=== PATIENT | female | born 1950 | race Caucasian/White ===

== ENCOUNTER 2019-03-25 13:22 | Inpatient (IN) | payer MEDICARE, SELFPAY ==
[2019-03-25 13:42] VITALS: BP 159/67; PULSE 107; RESP 16; TEMP 36.7; O2SAT 96
[2019-03-25 13:57] VITALS: BMI 32.9
--- NOTE | 2019-03-25 14:05 | US_ITS ---
WS: [id number] RIGHT UPPER QUADRANT ULTRASOUND HISTORY: HEP A DEHYDRATION COMPARISON: None available. Liver: 14.4 cm in length. Liver is normal size. Mild coarsened echotexture. There is moderate intrahe patic duct dilatation. No mass identified. Gallbladder: Normally distended gallbladder. No hydrops at this time. There is mobile sludge in the g allbladder lumen along the dependent surface. No cholelithiasis. CBD: 1.3 mm Pancreas: Head and tail are obscured by bowel gas. The body is normal. Right kidney: 10.9 cm in length. Normal echogenicity with no mass or hydronephrosis. Aorta and IVC: Unremarkable. No ascites. US/US liver [id number] IMPRESSION: 1. Dilated intra and extrahepatic bile ducts. Etiology is not certain. 2. Gallbladder sludge with no cholelithiasis. 3. Recommend follow-up CT abdomen and pelvis with IV and oral contrast. MRCP w ould be of benefit to evaluate the common bile duct.
[2019-03-25 14:54] VITALS: BP 172/76; PULSE 99; RESP 21; TEMP 37.7; O2SAT 96
[2019-03-25 15:45] LABS: Basophils % 0.2 %; Eosinophils % 0.1 %; Hematocrit 36.5 % (37.0-47.0); Hemoglobin 12.4 g/dL (11.5-15.3); Lymphocytes % 7.5 %; Mean Corpuscular Hemoglobin 28.8 pg (28.0-34.0); Mean Corpuscular Volume 84.9 fL (81-99); Mean Platelet Volume 10.8 fL (7.4-10.4); Monocytes # 1.1 10^3/uL (0.2-0.9); Monocytes % 8.3 %; Neutrophils # 10.7 10^3/uL (1.8-7.7); Neutrophils % 82.9 %; Nucleated Red Blood Cells % 0 %; Platelet Count 258 10^3/cmm (130-400); Red Cell Distribution Width 13.2 % (12.1-15.1); White Blood Count 12.9 10^3/uL (4.0-10.0)
[2019-03-25] MEDS: sodium chlor 0.9% + KCl 20 mEq 20 MEQ/1,000 ML BAG 175 MEQ IV ×2 (15:46→21:11)
[2019-03-25 16:01] LABS: Alanine Aminotransferase 248 U/L (0-33); Albumin Level 3.4 g/dL (3.5-5.2); Alkaline Phosphatase 785 IU/L (35-105); Anion Gap 20.8 (5-19); Aspartate Amino Transferase 226 U/L (0-32); Blood Urea Nitrogen 8 mg/dL (8-23); Calcium 9.2 mg/dL (8.5-10.5); Carbon Dioxide 21 mmol/L (22-29); Chloride 91 mmol/L (98-107); Globulin 3.6 g/dL (1.3-4.6); Glomerular Filtration Rate 122.7 mL/min (90-130); Glucose 307 mg/dL (65-115); Sodium 130 mmol/L (136-145)
[2019-03-25 16:08] LABS: Potassium 2.8 mmol/L (3.5-5.1); Total Bilirubin 7.7 mg/dL (0.15-1.2)
[2019-03-25 16:19] LABS: Glucose Point of Care 274 mg/dL (70-110)
[2019-03-25] MEDS: potassium chloride premix 40 MEQ/100 ML PREMIX 25 MEQ IV (19:21)
[2019-03-25 20:00] VITALS: BP 157/63; PULSE 77; RESP 21; TEMP 36.8; O2SAT 97
[2019-03-26] VITALS (9 sets, daily range): BP systolic 153–174; BP diastolic 67–87; PULSE 75–97; RESP 12–28; TEMP 36.6–36.8; O2SAT 95–98; BMI 34.0
[2019-03-26 03:30] LABS: Basophils % 0.3 %; Eosinophils % 0.4 %; Hematocrit 33.6 % (37.0-47.0); Hemoglobin 11.2 g/dL (11.5-15.3); Lymphocytes # 2.1 10^3/uL (0.8-4.8); Lymphocytes % 21.5 %; Mean Corpuscular HGB Conc 33.3 g/dL (30.0-36.0); Mean Corpuscular Hemoglobin 28.5 pg (28.0-34.0); Mean Corpuscular Volume 85.5 fL (81-99); Monocytes # 0.8 10^3/uL (0.2-0.9); Monocytes % 7.8 %; Neutrophils # 6.9 10^3/uL (1.8-7.7); Neutrophils % 69.4 %; Nucleated Red Blood Cells % 0 %; Platelet Count 237 10^3/cmm (130-400); Red Blood Count 3.93 10^6/uL (4.1-5.3); Red Cell Distribution Width 13.4 % (12.1-15.1); White Blood Count 9.9 10^3/uL (4.0-10.0)
[2019-03-26 04:01] LABS: Alanine Aminotransferase 220 U/L (0-33); Albumin Level 2.6 g/dL (3.5-5.2); Alkaline Phosphatase 652 IU/L (35-105); Anion Gap 16.3 (5-19); Aspartate Amino Transferase 213 U/L (0-32); Blood Urea Nitrogen 7 mg/dL (8-23); Calcium 8.9 mg/dL (8.5-10.5); Carbon Dioxide 20 mmol/L (22-29); Chloride 100 mmol/L (98-107); Globulin 3.2 g/dL (1.3-4.6); Glomerular Filtration Rate 221.2 mL/min (90-130); Glucose 281 mg/dL (65-115); Potassium 3.3 mmol/L (3.5-5.1); Sodium 133 mmol/L (136-145); Total Bilirubin 6.2 mg/dL (0.15-1.2); Total Protein 5.8 g/dL (6.6-8.7)
--- NOTE | 2019-03-26 08:27 | P.HP_ITS ---
Providers/Chief Complaint Admitting Physician: Huey Whitehead MD Primary Care Provider: Huey Whitehead MD Chief Complaint: HEP A W DEHYDRATION History of Present Illness Preeti Saunders is a 68 year old female who presented to the clinic yesterday for follow-up on laboratory testing that she had. Approximately 2 weeks ago she started feeling really bad. Getting nauseated and having vomiting since. She had some abdominal pain. Little bit of chest pain also. Fevers initially. Condition is just continue to get worse. She came into the office a few days ago and blood work revealed elevated LFTs. With these were repeated and showed her to be positive for hepatitis A. She is brought back into the clinic yesterday to review those labs and see how she was doing. Condition was worsening. She is becoming more dehydrated. At that point the decision was made to directly admit her to the hospital for IV fluids. This morning patient is feeling better. Her total bilirubin has decreased some. She has no chest pain or fevers this morning. Still little nauseous. Feels better with the IV fluids. Past medical history Hyperlipidemia, depression, irregular heartbeat, osteoporosis, diabetes mellitus type 2, latent TB. Past surgical history total abdominal hysterectomy and BSO in her 30s for cysts. 2 vaginal deliveries. Family history Sister had lymphoma age 67 mom had uterine cancer in her 40s Social history She goes by [employer]. Retired from [employer]. Quit smoking at age 45 and has a [id number] smoking history. No alcohol use. Review of Systems Narrative: General: No chronic fevers or chronic weight changes. HEENT: No acute changes in vision. No acute hearing loss. No new difficulty swallowing. Heart: No new chest pain or recent issues with coronary disease. Lungs: Currently being treated for latent TB. No chronic lung disease. GI: No history of GI bleeding. . Renal: No dysuria or frequency. No hematuria Neuro: No acute neurological changes or deficits. Musculoskeletal: No acutely worsening joint pain or swelling. Medications/Allergies Home Medications Medication Instructions Recorded Confirmed Last Taken Type fluoxetine 1 mg PO DAILY 03/25/19 03/25/19 Unknown History glimepiride 2 mg PO DAILY 03/25/19 03/25/19 Unknown History isoniazid 300 mg PO DAILY 03/25/19 03/25/19 Unknown History pyridoxine (vitamin B6) [Vitamin 50 mg PO DAILY 03/25/19 03/25/19 Unknown History B-6] Allergies Allergy/AdvReac Type Severity Reaction Status Date / Time No Known Allergies Allergy Verified 03/25/19 14:57 PFSH Acute PFSH: Statuses (acute, chronic, etc) shown below reflect problem list status as previously entered and may not be historically accurate Medical History (Updated 03/26/19 @ 15:20 by Huey Whitehead MD) Diabetes mellitus, type II (Acute) Hepatitis A (Acute) Obstructive sleep apnea on CPAP (Acute) Vitals/I&O/Wt Last Vital Signs Temp 98.0 F 03/26/19 07:19 Pulse 88 03/26/19 07:19 Resp 21 H 03/26/19 07:19 BP 171/85 03/26/19 07:19 Pulse Ox 98 03/26/19 07:19 03/25/19 03/26/19 03/26/19 22:59 06:59 14:59 Intake Total 947.917 / 2167.917 1220 / 2167.917 Output Total 2600 / 2600 Balance -1652.083 / -865.950 1179 / -432.083 Weight last 48 hrs Weight 197 lb 14.4 oz Weight 197 lb 14.4 oz Weight 191 lb 14.4 oz Physical Exam Narrative: EXAM NARRATIVE: General: No acute distress, Alert. Well nourished. Patient does have some significant jaundice noted. HEENT: PERRLA, EOMI. vision grossly normal. Throat clear. Neck: supple, no adenopathy. Heart: Regular rate and rhythm. No murmurs, rubs or gallops. Normal capillary refill. Lungs: Clear to auscultation. No wheezes, rhonchi or rales. Abdomen: Positive bowel sounds. Non-tender, non-distended. No hepatosplenomegaly. No gaurding. Extremities: No clubbing, cyanosis, or edema. Negative Manjit's. Data : 03/26/19 03:02 03/26/19 03:02 A&P Assessment and plan (1) Hepatitis A: Patient has significantly elevated LFTs and total bilirubin. These have actually improved some today from yesterday. She is also having some significant dehydration. She is responding well to IV fluids. I think she would benefit from another 24 hours of IV fluids and antiemetics. Hopeful for possible discharge tomorrow. Status: Acute Code(s): B15.9 - Hepatitis A without hepatic coma Attestations Medical Necessity Statement*: Patient is a 68-year-old female with acute hepatitis A requiring continued IV treatment and monitoring. 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
[2019-03-26] MEDS: glimepiride 2 mg Tablet PO (09:57)
[2019-03-26] MEDS: fluoxetine 20 mg Capsule 40 MG PO (09:57)
[2019-03-26] MEDS: pyridoxine 50 mg Tablet PO (10:18)
[2019-03-26] MEDS: acetaminophen 500 mg Tablet PO ×2 (12:43→19:40)
--- NOTE | 2019-03-26 13:24 | PC.NURSE ---
patient states her upper back pain has substantually subsided now 2/10 on 0/10 scale.
--- NOTE | 2019-03-26 13:24 | PC.CHAP ---
Pastoral Care Encounter/Spiritual Assessment Type of Contact [] Declined oxygen plant operator visit [] Patient/Family/Request visit [] Outpatient visit [] Follow-up visit [] Physician referral [] Code/Alert [x] Routine visit [] Staff referral [] Actively dying [] Patient sleeping [] Family support [] [] Out of room [] Palliative care [] [] Receiving care in room [] Pre-surgical visit [] Trauma [] Long length of stay [] ICU visit [] Other: Relational/Emotional Strength [x] Patient feels connected with others/family/visitors/staff [] Distress [] Loneliness/isolation [] Abandonment Spirituality of Patient [x] Person of [place] [x] Attends Episcopalian of their [place] [x] Believes in Prayer [] Reads Bible or Church materials [] There are Spiritual issues to be addressed Theatrical Performer Interventions [x] Prayer [x] Active listening [x] Non-anxious presence [x] Spiritual/emotional support [] Crisis/trauma care [] Spiritual counseling [] Bereavement support [] Provided bereavement packet [] Provided Bible/devotional materials [] Provided toy/stuffed animal, coloring book to patient or family member [] Provided Communion [] Anointing/Lohn [] Salvation [x] Completed spiritual assessment [] Other: Impact on Illness or Injury [] Angry [] Fearful [] Anxious [] Often cries [] Exhaustion [] Unable to work [] Unable to attend temple [] Unable to walk/stand [] Unable to read [] Unable to drive [] Unable to eat/drink [] Unable to sleep [] Unable to be with family [] Patient intubated [] Other: Summary Pt just wants to get well and go home to spouse and family. Pt has been sick for 3 weeks and is tired of being sick, per her statement. Theatrical Performer Citlalli Vanegas Time spent with patient 17 minutes
[2019-03-26] MEDS: enoxaparin 40 mg/0.4 mL Syringe SUBCUT (15:29)
[2019-03-26] MEDS: sodium chloride 0.9% 1,000 ML 125 ML IV (15:30)
[2019-03-27] VITALS (9 sets, daily range): BP systolic 140–172; BP diastolic 75–90; PULSE 85–93; RESP 15–25; TEMP 36.6–36.8; O2SAT 93–96; BMI 33.7
[2019-03-27] MEDS: ondansetron 2 mg/ML SDV 2 mL 4 MG IVP ×2 (01:12→10:25)
[2019-03-27] MEDS: sodium chloride 0.9% 1,000 ML 125 ML IV ×2 (02:27→10:32)
[2019-03-27 05:18] LABS: Basophils % 0.3 %; Eosinophils % 0.2 %; Hematocrit 34.4 % (37.0-47.0); Hemoglobin 11.5 g/dL (11.5-15.3); Lymphocytes # 1.8 10^3/uL (0.8-4.8); Lymphocytes % 14.5 %; Mean Corpuscular HGB Conc 33.4 g/dL (30.0-36.0); Mean Corpuscular Hemoglobin 29.3 pg (28.0-34.0); Mean Corpuscular Volume 87.5 fL (81-99); Mean Platelet Volume 11.4 fL (7.4-10.4); Monocytes # 0.9 10^3/uL (0.2-0.9); Neutrophils # 9.6 10^3/uL (1.8-7.7); Neutrophils % 77.1 %; Nucleated Red Blood Cells % 0 %; Platelet Count 267 10^3/cmm (130-400); Red Blood Count 3.93 10^6/uL (4.1-5.3); Red Cell Distribution Width 13.6 % (12.1-15.1); White Blood Count 12.4 10^3/uL (4.0-10.0)
[2019-03-27 05:34] LABS: Alanine Aminotransferase 243 U/L (0-33); Albumin Level 2.9 g/dL (3.5-5.2); Alkaline Phosphatase 789 IU/L (35-105); Anion Gap 18.2 (5-19); Aspartate Amino Transferase 271 U/L (0-32); Blood Urea Nitrogen 8 mg/dL (8-23); Calcium 9.2 mg/dL (8.5-10.5); Carbon Dioxide 21 mmol/L (22-29); Chloride 96 mmol/L (98-107); Globulin 3.5 g/dL (1.3-4.6); Glomerular Filtration Rate 221.2 mL/min (90-130); Glucose 280 mg/dL (65-115); Potassium 3.2 mmol/L (3.5-5.1); Sodium 132 mmol/L (136-145); Total Protein 6.4 g/dL (6.6-8.7)
[2019-03-27 05:45] LABS: Total Bilirubin 7.4 mg/dL (0.15-1.2)
[2019-03-27] MEDS: fluoxetine 20 mg Capsule 40 MG PO (10:06)
[2019-03-27] MEDS: glimepiride 2 mg Tablet PO (10:07)
[2019-03-27] MEDS: pyridoxine 50 mg Tablet PO (10:07)
--- NOTE | 2019-03-27 10:08 | MRR_ITS ---
PROCEDURE INFORMATION: Exam: MR Abdomen Without Contrast Exam date and time: 03/27/2019 2:59 PM Age: 68 years old Clinical indication: Abdominal pain; Generalized; Patient HX: PT experiencing total abdomen pain accompanied by n/v for 4 weeks; Additional info: R/O vivian, lft derranged TECHNIQUE: Imaging protocol: MR of the abdomen without contrast. COMPARISON: US liver [id number] 03/25/2019 2:04 PM FINDINGS: Liver: Mild hepatic steatosis is appreciated. No parenchymal lesion is seen. Gallbladder and bile ducts: Sludge and a small gallstone are present in the gallbladder. No gallbladder wall thickening; however, trace pericholecystic fluid is seen. Mild biliary ductal dilatation is again seen. The common bile duct measures up to 12 mm. A small 9 mm stone is present in the distal common bile duct. A small 6 mm stone is also seen in the terminal common bile duct near the ampulla. Pancreas: Mild peripancreatic fat stranding is seen in the head and uncinate region. No pancreatic ductal dilatation. Spleen: Unremarkable. No splenomegaly. Adrenals: Unremarkable. No mass. Kidneys and ureters: Small parapelvic cysts are seen in both kidneys. Trace bilateral perinephric fluid is appreciated which is likely related to chronic changes. Stomach and bowel: Unremarkable. Intraperitoneal space: No fluid collection. Arteries: No abdominal aortic aneurysm. Bones/joints: Unremarkable. Soft tissues: Unremarkable. MR/MR MRCP [id number] IMPRESSION: 1. Cholelithiasis and choledocholithiasis. Trace pericholecystic fluid may be secondary to cholecystitis or may be related to pancreatitis. Nuclear medicine hepatobiliary scan may allow further delineation. 2. Mild acute pancreatitis. 3. Mild hepatic steatosis.
[2019-03-27] MEDS: morphine 4 mg/mL SDV 1 mL 1 MG IVP ×2 (10:29→21:01)
[2019-03-27 11:15] LABS: HIV 1 & 2 Antibody Non-Reactive (Non-Reactiv); HIV 1 & 2 Antigen Non-Reactive (Non-Reactiv)
[2019-03-27] MEDS: sodium chloride 0.9% 1,000 ML 150 ML IV (12:22)
[2019-03-27] MEDS: morphine 4 mg/mL SDV 1 mL 2 MG IVP (13:33)
--- NOTE | 2019-03-27 15:31 | P.PN_ITS ---
Subjective Subjective: Interval history: History and physical and lab still now noted. Seen today morning while comfortably lying in bed. Patient complains of abdominal pain, nausea but no vomiting and back pain. She denies of having any fevers, chills, change in her bowel movements, dysuria. Vitals/I&O/Wt Last Vital Signs Temp 98.2 F 03/27/19 07:43 Pulse 89 03/27/19 11:28 Resp 18 03/27/19 11:28 BP 169/76 03/27/19 11:28 Pulse Ox 94 03/27/19 11:28 03/27/19 03/27/19 03/27/19 06:59 14:59 22:59 Intake Total 1150 / 1510 1310 / 1310 Output Total 150 / 150 Balance 1150 / 510 1160 / 1160 Weight last 48 hrs Weight 89.358 kg Weight 89.358 kg Weight 89.766 kg Weight 89.766 kg Physical Exam Narrative: EXAM NARRATIVE: General: No acute distress, Alert. Well nourished. Icterus present. HEENT: PERRLA, EOMI. vision grossly normal. Throat clear. Neck: supple, no adenopathy. Heart: Regular rate and rhythm. No murmurs, rubs or gallops. Normal capillary refill. Lungs: Clear to auscultation. No wheezes, rhonchi or rales. Abdomen: Positive bowel sounds. Non-tender, non-distended. No hepatosplenomegaly. No gaurding. Extremities: No clubbing, cyanosis, or edema. Negative Manjit's. Data : 03/27/19 04:45 03/27/19 04:45 A&P Assessment and plan (1) Hepatitis A: LFTs continue to be deranged. Little worsened as compared to yesterday. With marked elevation in alkaline phosphatase as well. Continue with IV fluids. Will increase normal saline from 125 to 150 cc/h. Given the right upper quadrant tenderness and elevated alkaline phosphatase will get MRCP to rule out cholecystitis. Check HIV. On review of medications patient was also on isoniazid which could be contributing to deranged LFTs. We will change the diet to GI soft bland. Will advance further as tolerated. Will give morphine 1 mg IV Q6h PRN Status: Acute Code(s): B15.9 - Hepatitis A without hepatic coma (2) Abnormal liver function: Status: Acute Code(s): R94.5 - Abnormal results of liver function studies (3) Diabetes mellitus, type II: Status: Acute Code(s): E11.9 - Type 2 diabetes mellitus without complications (4) Latent tuberculosis: Status: Acute Code(s): Z22.7 - Latent tuberculosis Additional A&P Information Abnormal liver function tests: Most likely due to hepatitis A along with patient being on isoniazid and statins in past. Latent TB: Continue to hold isoniazid and view of abnormal liver functions right now. Type 2 diabetes mellitus: Given the deranged liver function test cannot move the clearance of glimepiride so will withhold for now. We will change her over to insulin sliding scale at mild protocol. Continue on chronic home dose of Prozac. 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
[2019-03-27 16:32] LABS: Glucose Point of Care 315 mg/dL (70-110)
[2019-03-27] MEDS: enoxaparin 40 mg/0.4 mL Syringe SUBCUT (16:35)
--- NOTE | 2019-03-27 18:21 | P.TS_ITS ---
Transfer Summary Providers Date of Admission: 03/25/19 13:22 Date of Discharge: 03/27/19 Attending Provider at Admission: Huey Whitehead MD Attending Provider at Transfer: Alex Harris MD Primary Care Provider: Huey Whitehead MD Anticipated Date of Transfer: Anticipated date of transfer: 03/27/19 Receiving Facility & Provider: Receiving Provider: [Dr. Ohara and Dr. Sam] Receiving facility: [facility]] Diagnoses at Discharge Discharge Diagnosis (1) Hepatitis A: Status: Acute (2) Abnormal liver function: Status: Acute (3) Diabetes mellitus, type II: Status: Acute (4) Latent tuberculosis: Status: Acute (5) Cholangitis: Status: Acute (6) Pancreatitis: Status: Acute Reason for Visit Reason for Visit: Reason For Visit: HEP A W DEHYDRATION Hospital Course Discharge Summary: Patient was admitted on March 26 because of worsening liver function tests along with positive hepatitis C serology as an outpatient for IV hydration. During hospitalization patient's liver function test continue to worsen along with right upper quadrant pain and nausea on examination patient was found to have Toure sign positive. Patient underwent MRCP which was suggestive of choledocholithiasis and choledocholithiasis with positive signs for cholecystitis and pancreatitis most consistent with cholangitis. Case was discussed with Dr. Jaramillo who suggestive patient needing ERCP for further management. Patient was started on Zosyn for perioperative management. 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 For further details please read my progress note from today. Physical Exam Narrative: EXAM NARRATIVE: General: No acute distress, Alert. Well nourished. Icterus present. HEENT: PERRLA, EOMI. vision grossly normal. Throat clear. Neck: supple, no adenopathy. Heart: Regular rate and rhythm. No murmurs, rubs or gallops. Normal capillary refill. Lungs: Clear to auscultation. No wheezes, rhonchi or rales. Abdomen: Generalized tenderness all over the belly more in the right upper quadrant, Toure sign positive, bowel sounds present, no hepatosplenomegaly. Extremities: No clubbing, cyanosis, or edema. Negative Manjit's. TS Data Data Completed and Pending: Completed Studies During Hospitalization Category Date Time Status MR MRCP [id number] Sta t MRI 03/27/19 10:08 Completed US liver [id number] Ro utine Ultrasound 03/25/19 14:05 Completed Pending at discharge Category Date Time Status Complete Blood Co unt w/Auto AM LABS Lab 03/28/19 04:00 Ordered Complete Blood Co unt w/Auto AM LABS Lab 03/29/19 04:00 Ordered Complete Blood Co unt w/Auto AM LABS Lab 03/30/19 04:00 Ordered Comprehensive Met abolic Panel AM LA BS Lab 03/28/19 04:00 Ordered Comprehensive Met abolic Panel AM LA BS Lab 03/29/19 04:00 Ordered Comprehensive Met abolic Panel AM LA BS Lab 03/30/19 04:00 Ordered Hepatitis Acute P tamra Routine Lab 03/27/19 17:34 Ordered Lipase Routine Lab 03/27/19 17:34 Ordered Labs from last 24 hours 03/27/19 03/27/19 03/27/19 16:30 04:45 04:45 WBC RBC Hgb Hct MCV MCH MCHC RDW Plt Count MPV Neut % (Auto) Lymph % (Auto) Tyler % (Auto) Eos % (Auto) Baso % (Auto) Neut # (Auto) Lymph # (Auto) Tyler # (Auto) Eos # (Auto) Baso # (Auto) Nucleated RBC % (a uto) Nucleated RBCs # Sodium 132 L Potassium 3.2 L Chloride 96 L Carbon Dioxide 21 L Anion Gap 18.2 BUN 8 Creatinine 0.3 L GFR Calculation 221.2 H Glucose 280 H POC Glucose 315 Calcium 9.2 Total Bilirubin 7.4 H* AST 271 H ALT 243 H Alkaline Phosphata se 789 H Total Protein 6.4 L Albumin 2.9 L Globulin 3.5 HIV 1&2 Ab & HIV 1 Ag Non-reactive HIV 1&2 Antibody Non-reactive 03/27/19 04:45 WBC 12.4 H RBC 3.93 L Hgb 11.5 Hct 34.4 L MCV 87.5 MCH 29.3 MCHC 33.4 RDW 13.6 Plt Count 267 MPV 11.4 H Neut % (Auto) 77.1 Lymph % (Auto) 14.5 Tyler % (Auto) 7.0 Eos % (Auto) 0.2 Baso % (Auto) 0.3 Neut # (Auto) 9.6 H Lymph # (Auto) 1.8 Tyler # (Auto) 0.9 Eos # (Auto) 0.0 Baso # (Auto) 0.0 Nucleated RBC % (a uto) 0 Nucleated RBCs # 0.0 Sodium Potassium Chloride Carbon Dioxide Anion Gap BUN Creatinine GFR Calculation Glucose POC Glucose Calcium Total Bilirubin AST ALT Alkaline Phosphata se Total Protein Albumin Globulin HIV 1&2 Ab & HIV 1 Ag HIV 1&2 Antibody Vitals: Last Vital Signs Temp 98.2 F 03/27/19 15:35 Pulse 90 03/27/19 15:35 Resp 17 03/27/19 15:35 BP 150/88 03/27/19 15:35 Pulse Ox 94 03/27/19 15:35 TS Medications Medications Home Medications fluoxetine 1 mg PO DAILY 03/25/19 [History Confirmed 03/25/19] glimepiride 2 mg PO DAILY 03/25/19 [History Confirmed 03/25/19] isoniazid 300 mg PO DAILY 03/25/19 [History Confirmed 03/25/19] pyridoxine (vitamin B6) [Vitamin B-6] 50 mg PO DAILY 03/25/19 [History Confirmed 03/25/19] Active Medications Acetaminophen (Tylenol) 500 mg PO Q6H PRN PRN Reason: MILD PAIN OR INCREASE TEMP Last Admin: 03/26/19 19:40 Dose: 500 mg Documented by: Bisacodyl (Dulcolax) 10 mg PO DAILY PRN PRN Reason: CONSTIPATION Dextrose (D50w) 25 ml IVP ONCE PRN; Protocol PRN Reason: hypoglycemia protocol Dextrose (D50w) 50 ml IVP PRN PRN; Protocol PRN Reason: hypoglycemia protocol Enoxaparin Sodium (Lovenox) 40 mg SUBCUT Q24H [facility] Last Admin: 03/27/19 16:35 Dose: 40 mg Documented by: Fluoxetine HCl (Prozac) 40 mg PO DAILY [facility] Last Admin: 03/27/19 10:06 Dose: 40 mg Documented by: Glucagon (Glucagen) 1 mg IM ONCE PRN; Protocol PRN Reason: Adult Acute Hypoglycemia Prot. Sodium Chloride (Sodium Chloride 0.9%) 1,000 mls @ 150 mls/hr IV .Q6H40M [facility] Last Admin: 03/27/19 12:22 Dose: 150 mls/hr Documented by: Dextrose (D5w) 500 mls @ 100 mls/hr IV ONCE PRN; Protocol PRN Reason: Adult Acute Hypoglycemia Prot Piperacillin Sod/Tazobactam (Sod 3.375 gm/ Sodium Chloride) 50 mls @ 12.5 mls/hr IV Q8H DANAE; Protocol Insulin Aspart (Novolog) 0 unit SUBCUT WM&BEDTIME DANAE; Protocol Magnesium Hydroxide (Milk Of Magnesia) 30 ml PO DAILY PRN PRN Reason: CONSTIPATION Morphine Sulfate (Morphine) 1 mg IVP Q4H PRN PRN Reason: SEVERE PAIN Last Admin: 03/27/19 10:29 Dose: 1 mg Documented by: Ondansetron HCl (Zofran) 4 mg IVP Q4H PRN PRN Reason: NAUSEA AND VOMITING Last Admin: 03/27/19 10:25 Dose: 4 mg Documented by: Pyridoxine HCl (Vitamin B-6) 50 mg PO DAILY DANAE Last Admin: 03/27/19 10:07 Dose: 50 mg Documented by: Zolpidem Tartrate (Ambien) 5 mg PO BEDTIME PRN PRN Reason: SLEEP Discharge Plan Discharge Patient Disposition: Home, Self-Care Condition: Stable Prescriptions: No Action glimepiride 2 mg tablet 2 mg PO DAILY RF: 0 Vitamin B-6 50 mg tablet 50 mg PO DAILY RF: 0 isoniazid 300 mg tablet 300 mg PO DAILY RF: 0 fluoxetine 40 mg capsule 1 mg PO DAILY RF: 0 Discharge Diet: Full LIquid Discharge Activity: Bedrest Transfer Attestations Time Spent in Transfer Care*: greater than 30 min Specific Discharge Activities: Specific discharge activities: educating patient, educating and/or supporting family/caregiver, discussing with rehabilitation case coordinator/social workers/dc planners and evaluating patient/reviewing data Status at Transfer: Cognitive status at transfer: cognitively intact , Behavioral status at transfer: cooperative , Functional status at transfer: other assisted ambulation Overall status at transfer: patient is not back to baseline Quality Metrics Clinical Quality Measures: During this hospital stay, did patient experience: None Coding Level of Care Code 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
[2019-03-27 18:34] LABS: Hepatitis A Antibody IgM. Non-Reactive (Nonreactive); Hepatitis B Core IgM Non-Reactive (Nonreactive); Hepatitis B Surface Antigen. Non-Reactive (Nonreactive); Hepatitis C Virus Antibody Non-Reactive (Nonreactive)
[2019-03-27 18:48] LABS: Lipase 747 U/L (13-60)
[2019-03-27] MEDS: piperacillin-tazobactam 3.375 GM in sodium chloride 0.9% (plus) 50 ML IV (19:09)
--- NOTE | 2019-03-27 21:10 | PC.NURSE ---
[facility] arrived at
--- NOTE | 2019-03-27 21:10 | PC.NURSE ---
[facility] arrived at 2109 to merchandise pickup/receiving associate patient for transfer to [facility]. Report Given, and patient had all her belongings with her. Clifton Alas RN called report to [facility].
== END 2019-03-27 21:15 | disposition short-term general hospital (02) | DRG 441 ==
PROVIDERS: Admitting Provider Family Medicine; Family Provider Family Medicine; PCP Family Medicine; Visit Provider Student in an Organized Health Care Education/Training Program
DX: B15.9 Hepatitis A without hepatic coma (principal); K85.90 Acute pancreatitis without necrosis or infection, unspecified; K80.10 Calculus of gallbladder with chronic cholecystitis without obstruction; K83.09 Other cholangitis; E78.5 Hyperlipidemia, unspecified; F32.9 Major depressive disorder, single episode, unspecified; M81.0 Age-related osteoporosis without current pathological fracture; E11.9 Type 2 diabetes mellitus without complications; Z22.7 Latent tuberculosis; Z90.710 Acquired absence of both cervix and uterus; Z87.891 Personal history of nicotine dependence; G47.33 Obstructive sleep apnea (adult) (pediatric); E86.0 Dehydration; Z79.84 Long term (current) use of oral hypoglycemic drugs; R94.5 Abnormal results of liver function studies; K76.0 Fatty (change of) liver, not elsewhere classified
CPT/HCPCS: 12345; 36415; 36416; 74181; 76705; 80053; 80074; 82962; 83690; 85025; 86140; 87806; 96372; 96375; J1650; J1815; J2270; J2405; J2543; J3480; J7030

== ENCOUNTER 2019-10-11 08:47 | Outpatient (CLI) | payer MEDICARE, SELFPAY ==
--- NOTE | 2019-10-11 08:59 | US_ITS ---
WS: [id number] ULTRASOUND ABDOMEN LIMITED CLINICAL INFORMATION: HEPATITIS/ELEVATED LFT'S COMPARISON: None. FINDINGS: Liver Size: Mild hepatomegaly Craniocaudal length: 19.0 cm. Echogenicity: Coarse fatty infiltration Surface nodularity: None. Mass (size and location): None. Bile ducts Intrahepatic ducts: Normal. Common bile duct diameter: 0.7 cm. Gallbladder Removed Pancreas Normal as visualized. Right kidney: Normal. Hydronephrosis: None. Size: 10.5 cm x 5.6 cm x 6.0 cm. Abdominal aorta and IVC Visualized portions are normal. Ascites: None. US/US gall bladder [id number] IMPRESSION: 1. Mild hepatomegaly with fatty infiltration. 2. Gallbladder has been removed. 3. Normal common bile duct. 4. No hydronephrosis in right kidney.
== END 2019-10-11 08:48 | disposition home or self-care (01) ==
LOC: RAD 08:50
PROVIDERS: PCP Family Medicine; Visit Provider Family Medicine
DX: K75.9 Inflammatory liver disease, unspecified (principal); R94.5 Abnormal results of liver function studies; R16.0 Hepatomegaly, not elsewhere classified; K76.0 Fatty (change of) liver, not elsewhere classified
CPT/HCPCS: 76705

== ENCOUNTER 2019-11-06 08:53 | Emergency (ER) | payer MEDICARE, SELFPAY ==
[2019-11-06 09:05] VITALS: BMI 31.7
[2019-11-06 09:12] VITALS: BP 133/66; PULSE 86; RESP 20; TEMP 36.8; O2SAT 94
--- NOTE | 2019-11-06 09:25 | CTR_ITS ---
PROCEDURE INFORMATION: Exam: CT Maxillofacial Without Contrast Exam date and time: 11/06/2019 9:52 AM Age: 69 years old Clinical indication: Injury or trauma; Fall; Initial encounter; Blunt trauma (contusions or hematomas); Forehead and orbit/periorbital; Right; Additional info: Syncope, fall TECHNIQUE: Imaging protocol: Computed tomography images of the face without contrast. Radiation optimization: All CT scans at this facility use at least one of these dose optimization techniques: automated exposure control; mA and/or kV adjustment per patient size (includes targeted exams where dose is matched to clinical indication); or iterative reconstruction. COMPARISON: No relevant prior studies available. Greeting Card Maker CT head and cervical spine. RADIATION DOSE METRICS: Total DLP (mGy-cm): 763.26 FINDINGS: Orbits: Orbits are normal. No retrobulbar hematoma. Globes are round and symmetrical. Bones/joints: Acute minimally displaced fractures of the anterior and posterolateral baptiste of the right maxillary sinus. There is a small amount of layering fluid within the right maxillary sinus and scattered air within the soft tissues, right greater than left. There is subtle irregularity concerning for acute nondisplaced fracture of the dorsum sellae (see sagittal images 30 and 31 series 602, also coronal images 15 through 17 series 601) with minimal dependent fluid/debris within the right sphenoid sinus and small amount of air outlining the sella bilaterally. Bones otherwise appear intact. Paranasal sinuses: Fluid within right maxillary sinus and right sphenoid sinus as described. Left paranasal sinuses well aerated. Mastoid air cells: Bilateral mastoid air cells clear. No evidence of temporal bone fracture. Soft tissues: As above. CT/CT facial bones wo con* [id number] IMPRESSION: 1. Acute minimally displaced fractures of the right maxillary sinus anterior and posterolateral baptiste, with small layering fluid/blood within the sinus. 2. Suspected acute nondisplaced fracture of the dorsum sellae, possibly involving the adjacent right sphenoid sinus. 3. Bones appear intact. 4. Scattered air within the soft tissues bilaterally, largest amount surrounding the right maxillary sinus fractures as expected, but some on the left as well. Radiation Dose CTDIVOL = (mGy): DLP = 763.26 (mGy-cm)
--- NOTE | 2019-11-06 09:25 | CTR_ITS ---
PROCEDURE INFORMATION: Exam: CT Head Without Contrast Exam date and time: 11/06/2019 9:52 AM Age: 69 years old Clinical indication: Injury or trauma; Fall; Additional info: Syncope, fall TECHNIQUE: Imaging protocol: Computed tomography of the head without contrast. Radiation optimization: All CT scans at this facility use at least one of these dose optimization techniques: automated exposure control; mA and/or kV adjustment per patient size (includes targeted exams where dose is matched to clinical indication); or iterative reconstruction. COMPARISON: No relevant prior studies available. 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 RADIATION DOSE METRICS: Total DLP (mGy-cm): 804.8 FINDINGS: Brain: No intracranial hemorrhage. Diffuse atrophy. 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 Additional old infarct seen within the bilateral cerebellar hemispheres, right greater than left. Normal carpio-white differentiation with no evidence of edema or acute territorial infarct. There is decreased attenuation of the periventricular white matter which is nonspecific but compatible with chronic microvascular ischemia. No extra-axial fluid collection. Ventricles: No hydrocephalus. Bones/joints: Calvarium intact. Right maxillary sinus fractures better visualized on dedicated maxillofacial CT. Paranasal sinuses: Fluid right maxillary sinus and right sphenoid sinus. See dedicated maxillofacial CT. Soft tissues: Small right periorbital soft tissue swelling/hematoma. CT/CT head wo con* [id number] IMPRESSION: 1. No acute intracranial findings. 2. Atrophy and chronic ischemic changes. 3. Right periorbital soft tissue swelling/hematoma. See report for dedicated maxillofacial CT for description fractures. Radiation Dose CTDIVOL = (mGy): DLP = 804.8 (mGy-cm)
--- NOTE | 2019-11-06 09:25 | CTR_ITS ---
PROCEDURE INFORMATION: Exam: CT Cervical Spine Without Contrast Exam date and time: 11/06/2019 9:52 AM Age: 69 years old Clinical indication: Injury or trauma; Fall; Initial encounter; Blunt trauma; Additional info: Syncope, fall TECHNIQUE: Imaging protocol: Computed tomography images of the cervical spine without contrast. Radiation optimization: All CT scans at this facility use at least one of these dose optimization techniques: automated exposure control; mA and/or kV adjustment per patient size (includes targeted exams where dose is matched to clinical indication); or iterative reconstruction. COMPARISON: No relevant prior studies available. 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 RADIATION DOSE METRICS: Total DLP (mGy-cm): 692.72 FINDINGS: Vertebrae: Vertebral bodies and posterior elements intact and normally aligned. Discs/Spinal canal/Neural foramina: Moderate disc space narrowing at C3/4 with uncovertebral joint hypertrophy and small osteophytes contributing to mild stenosis of the right neural foramen. No high-grade stenosis. Soft tissues: No abnormal swelling/hematoma. Small scattered gas within the soft tissues in the setting of right maxillary sinus fracture. Lungs: No acute findings. CT/CT cervical spin wo con* [id number] IMPRESSION: 1. No evidence of cervical spine fracture or subluxation. 2. C3/4 degenerative changes. No high-grade stenosis. Radiation Dose CTDIVOL = (mGy): DLP = 692.72 (mGy-cm)
--- NOTE | 2019-11-06 09:25 | XRR_ITS ---
PROCEDURE INFORMATION: Exam: XR Chest, 1 View Exam date and time: 11/06/2019 9:28 AM Age: 69 years old Clinical indication: Injury or trauma; Fall; Initial encounter; Blunt trauma (contusions or hematomas); Additional info: Syncope, hypoxia, covid R/O TECHNIQUE: Imaging protocol: XR of the chest Views: 1 view. COMPARISON: CR Chest 2 views* [id number] 10/18/2018 5:53 PM FINDINGS: Lungs: Unremarkable. No consolidation. Pleural space: Unremarkable. No evidence of pleural effusion or pneumothorax. Heart/Mediastinum: Unremarkable. No cardiomegaly. Bones/joints: Unremarkable. XR/XR chest 1V portable [id number] IMPRESSION: No acute findings.
--- NOTE | 2019-11-06 09:25 | ECG_ITS ---
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 Measurements Intervals [place] Rate: 82 P: 60 NV: 148 QRS: -30 QRSD: 101 T: 45 QT: 405 QTc: 474 Interpretive Statements SINUS RHYTHM BORDERLINE LEFT AXIS DEVIATION [QRS AXIS < -20] No previous ECG available for comparison Electronically Signed On 11-06-2019 17:33:39 CDT by Dawson Otto M.D. [email or web address] Technologiesjefferson davis community hospitalBusyEventavita health system bucyrus hospitalSimuForm/store/OM/[id number]
[2019-11-06 09:34] VITALS: RESP 20
[2019-11-06] MEDS: morphine 4 mg/mL SDV 1 mL IVP (09:34)
[2019-11-06] MEDS: ondansetron 2 mg/ML SDV 2 mL 4 MG IV (09:35)
[2019-11-06] MEDS: sodium chloride 0.9% 1,000 ML 150 ML IV (09:35)
[2019-11-06 09:59] LABS: Basophils % 0.2 %; Hematocrit 38.9 % (37.0-47.0); Hemoglobin 12.9 g/dL (11.5-15.3); Lymphocytes # 0.8 10^3/uL (0.8-4.8); Lymphocytes % 11.7 %; Mean Corpuscular HGB Conc 33.2 g/dL (30.0-36.0); Mean Corpuscular Hemoglobin 30.2 pg (28.0-34.0); Mean Corpuscular Volume 91.1 fL (81-99); Mean Platelet Volume 11.3 fL (7.4-10.4); Monocytes # 0.2 10^3/uL (0.2-0.9); Monocytes % 2.8 %; Neutrophils # 5.54 10^3/uL (1.8-7.7); Neutrophils % 85.1 %; Nucleated Red Blood Cells % 0 %; Platelet Count 221 10^3/cmm (130-400); Red Blood Count 4.27 10^6/uL (4.1-5.3); Red Cell Distribution Width 12.5 % (12.1-15.1); White Blood Count 6.5 10^3/uL (4.0-10.0)
[2019-11-06 10:08] LABS: INR 0.92 (0.8-1.2)
[2019-11-06 10:10] LABS: D Dimer 1.44 ug/mIFEU (0-0.59)
[2019-11-06 10:17] LABS: Lactic Sepsis W/Reflex 2.9 mmol/L (0.5-2.2)
[2019-11-06 10:19] LABS: Troponin(5th) Baseline 13 ng/L (0-10)
--- NOTE | 2019-11-06 10:25 | ED_ITS ---
HPI - Fall General: Chief Complaint: Fall Stated Complaint: FALL Time Seen by Provider: 11/06/19 09:05 History of Present Illness: HPI Narrative: This patient is a 69-year-old female who presents today with a syncopal episode. She was doing a 5K walk with her worship when she suddenly passed out. She said she did not have chest pain or palpitations but was feeling very short of breath prior to the event. She has had a severe cough for about 3 weeks. She has been seeing her primary care for it and was tested for COVID about a week ago. That test came back negative. She continues to have a severe cough and is generally not feeling well. Her doctor gave her prednisone, 20 mg daily for 5 days. He also gave her an antibiotic prior to the prednisone which she said did not help at all either. Currently she is also taking another pill that is once daily and is large and red but she is not sure if it is an antibiotic or what it is for. Her medication list also had isoniazid on it which I asked about. Apparently she had some sort of positive TB test about a year ago and was on that for a short time. It made her liver enzymes go up so she was taken off of it. She also has a history of diabetes and is overweight. She is complaining of pain in her head, face and neck and right arm from the fall. MD complaint: fall Onset (ago): minute(s) (30) Fall from: standing Fall witnessed: yes, by bystander Place fall occurred: street Loss of consciousness: Yes Length of LOC: second(s) Prolonged down time: no Symptoms prior to fall: other (Short of breath) Context: recent illness Location of injury: head and face Location of injury - extremities: Right: hand Severity: moderate Quality: dull Associated symptoms-after fall: Reports headache(s), neck pain and short of breath; Denies abdominal pain or chest pain Review of Systems General: Reports: 10 or more systems reviewed and unremarkable except in HPI and below Const: Reports: fatigue and malaise; Denies: fever(s) or chills Eyes: Denies: change in vision ENMT: Denies: odynophagia Card: Reports: syncope and dyspnea on exertion; Denies: chest pain or swelling of feet/ankles Resp: Reports: dyspnea and non-productive cough; Denies: productive cough GI: Reports: nausea; Denies: abdominal pain or vomiting : Denies: flank pain or difficulty voiding Musc: Reports: neck pain; Denies: back pain Skin/Breast: Denies: rash Neuro: Reports: headache(s); Denies: numbness in extremities or weakness in extremities Braulio/Lymph: Denies: easy bruising or easy bleeding PFS ED PFSH: Medical History (Updated 03/27/19 @ 18:25 by Alex Harris MD) Diabetes mellitus, type II Hepatitis A Obstructive sleep apnea on CPAP Physical Exam Const: COMMON NORMALS: no acute distress, patient oriented x3, no limitations and alert GENERAL APPEARANCE: cooperative and comfortable HENMT: HEAD & SCALP: abrasion (Right orbital area and zygoma), contusion and hematoma FACE & SINUS: normal facial exam Eye: GENERAL EYE: appearance normal, both eyes and all related structures Neck/C-Spine: COMMON NORMALS: supple, no meningeal signs and no JVD Chest: COMMONS NORMALS: normal inspection of the chest Resp: COMMON NORMALS: normal respiratory effort EFFORT & INSPECTION: Yes tachypneic AUSCULTATION: rhonchi lower bilaterally Cardio: COMMON NORMALS: no JVD, regular rate, regular rhythm and No murmurs present (Cardio) RATE: regular rate RHYTHM: regular rhythm GI: COMMON NORMALS: Normal to inspection, nondistended, normoactive bowel sounds present, Soft to palpation and non-tender INSPECTION: Yes normal to inspection AUSCULTATION: Yes normoactive bowel sounds PALPATION: Yes Soft to palpation Back/Pelvis: COMMON NORMALS: thoracic and lumbar spine normal to inspection Extremity: COMMON NORMALS: normal to inspection Neuro: COMMON NORMALS: patient oriented x3, moves all extremities, no focal motor deficits and no sensory deficits noted SENSORIUM/ORIENTATION: Yes alert MENINGEAL SIGNS: Yes no meningeal signs Psych: COMMON NORMALS: mental status grossly normal, cooperative and normal affect Skin: COMMON NORMALS: no rashes or lesions noted and turgor normal GENERAL SKIN EXAM: no rashes or lesions noted and turgor normal Course ED course: This patient has syncopal episode today while she was attempting to do a 5K walk with her worship group. She has been sick for 3 weeks with a cough. On arrival she has injuries to the right side of her face and is complaining about pain in her face and head. She is also noted to be hypoxic with a sat of 88% while just sitting on the bed talking with me. She had been tested for COVID a week ago but that test was negative. Given my clinical impression I am highly suspicious of COVID. She was tested and was positive here in the ED. Chest x-ray shows some changes consistent with COVID. I gave her Decadron and remdesivir. I did not give her Lovenox prophylactically given the injuries to her face. CT of the head showed no brain injury but she does have fractures to the right maxillary sinus, right dorsum sella and possibly the right sphenoid sinus. She was accepted to [facility] 2 there viral unit and they will consult regarding her facial injuries if necessary. Vital Signs: Vital signs: Vital Signs Temperature 98.5 F 11/06/19 15:03 Pulse Rate 81 11/06/19 15:03 Respiratory Rate 20 H 11/06/19 15:03 Blood Pressure 130/81 11/06/19 15:03 Pulse Oximetry 92 11/06/19 15:03 MDM - Fall Lab Data: Labs: Lab Results 11/06/19 11/06/19 11/06/19 Range/Units 09:49 09:49 09:49 WBC (4.0-10.0) 10^3/ uL RBC (4.1-5.3) 10^6/u L Hgb (11.5-15.3) g/dL Hct (37.0-47.0) % MCV (81-99) fL MCH (28.0-34.0) pg MCHC (30.0-36.0) g/dL RDW (12.1-15.1) % Plt Count (130-400) 10^3/c mm MPV (7.4-10.4) fL Neut % (Auto) % Lymph % (Auto) % [place] % (Auto) % Eos % (Auto) % Baso % (Auto) % Neut # (Auto) (1.8-7.7) 10^3/u L Lymph # (Auto) (0.8-4.8) 10^3/u L [place] # (Auto) (0.2-0.9) 10^3/u L Eos # (Auto) (0.0-0.8) 10^3/u L Baso # (Auto) (0.0-0.1) 10^3/u L Nucleated RBC % (a uto) % Nucleated RBCs # /100WBC PT 12.70 (12.1-14.9) SECO NDS INR 0.92 (0.8-1.2) D-Dimer 1.44 H (0-0.59) ug/mIFE U Sodium 134 L (136-145) mmol/L Potassium 3.8 (3.5-5.1) mmol/L Chloride 99 (98-107) mmol/L Carbon Dioxide 20 L (22-29) mmol/L Anion Gap 18.8 (5-19) BUN 13 (8-23) mg/dL Creatinine 0.7 (0.5-0.9) mg/dL GFR Calculation 83.0 L (90-130) mL/min Glucose 364 H (65-115) mg/dL Calculated Osmolal ity 293 (285-295) mOsm/k g Lactic Acid (0.5-2.2) mmol/L Lactic Acid (Sepsi s) (0.5-2.2) mmol/L Calcium 8.3 L (8.5-10.5) mg/dL Magnesium 1.9 (1.7-2.3) mg/dL Total Bilirubin 0.3 (0.15-1.2) mg/dL AST 31 (0-32) U/L ALT 23 (0-33) U/L Alkaline Phosphata se 76 (35-105) IU/L Troponin T Baselin e 13 H (0-10) ng/L Troponin T 120 Min [place] (0-10) ng/L Delta Troponin T (0-10) ABS# C-Reactive Protein 1.9 (0.0-4.9) mg/L NT-Pro-B Natriuret Pep 137 H (0-125) pg/mL Total Protein 6.5 L (6.6-8.7) g/dL Albumin 3.8 (3.5-5.2) g/dL Globulin 2.7 (1.3-4.6) g/dL Procalcitonin 0.05 (0-0.5) ng/mL SARS-CoV-2 Ag (Rap id) (Negative) 11/06/19 11/06/19 11/06/19 Range/Units 09:49 09:49 10:24 WBC 6.5 (4.0-10.0) 10^3/ uL RBC 4.27 (4.1-5.3) 10^6/u L Hgb 12.9 (11.5-15.3) g/dL Hct 38.9 (37.0-47.0) % MCV 91.1 (81-99) fL MCH 30.2 (28.0-34.0) pg MCHC 33.2 (30.0-36.0) g/dL RDW 12.5 (12.1-15.1) % Plt Count 221 (130-400) 10^3/c mm MPV 11.3 H (7.4-10.4) fL Neut % (Auto) 85.1 % Lymph % (Auto) 11.7 % [place] % (Auto) 2.8 % Eos % (Auto) 0.0 % Baso % (Auto) 0.2 % Neut # (Auto) 5.54 (1.8-7.7) 10^3/u L Lymph # (Auto) 0.8 (0.8-4.8) 10^3/u L [place] # (Auto) 0.2 (0.2-0.9) 10^3/u L Eos # (Auto) 0.0 (0.0-0.8) 10^3/u L Baso # (Auto) 0.0 (0.0-0.1) 10^3/u L Nucleated RBC % (a uto) 0 % Nucleated RBCs # 0.0 /100WBC PT (12.1-14.9) SECO NDS INR (0.8-1.2) D-Dimer (0-0.59) ug/mIFE U Sodium (136-145) mmol/L Potassium (3.5-5.1) mmol/L Chloride (98-107) mmol/L Carbon Dioxide (22-29) mmol/L Anion Gap (5-19) BUN (8-23) mg/dL Creatinine (0.5-0.9) mg/dL GFR Calculation (90-130) mL/min Glucose (65-115) mg/dL Calculated Osmolal ity (285-295) mOsm/k g Lactic Acid 2.9 H (0.5-2.2) mmol/L Lactic Acid (Sepsi s) (0.5-2.2) mmol/L Calcium (8.5-10.5) mg/dL Magnesium (1.7-2.3) mg/dL Total Bilirubin (0.15-1.2) mg/dL AST (0-32) U/L ALT (0-33) U/L Alkaline Phosphata se (35-105) IU/L Troponin T Baselin e (0-10) ng/L Troponin T 120 Min [place] (0-10) ng/L Delta Troponin T (0-10) ABS# C-Reactive Protein (0.0-4.9) mg/L NT-Pro-B Natriuret Pep (0-125) pg/mL Total Protein (6.6-8.7) g/dL Albumin (3.5-5.2) g/dL Globulin (1.3-4.6) g/dL Procalcitonin (0-0.5) ng/mL SARS-CoV-2 Ag (Rap id) Positive H (Negative) 11/06/19 11/06/19 Range/Units 12:03 13:10 WBC (4.0-10.0) 10^3/ uL RBC (4.1-5.3) 10^6/u L Hgb (11.5-15.3) g/dL Hct (37.0-47.0) % MCV (81-99) fL MCH (28.0-34.0) pg MCHC (30.0-36.0) g/dL RDW (12.1-15.1) % Plt Count (130-400) 10^3/c mm MPV (7.4-10.4) fL Neut % (Auto) % Lymph % (Auto) % [place] % (Auto) % Eos % (Auto) % Baso % (Auto) % Neut # (Auto) (1.8-7.7) 10^3/u L Lymph # (Auto) (0.8-4.8) 10^3/u L [place] # (Auto) (0.2-0.9) 10^3/u L Eos # (Auto) (0.0-0.8) 10^3/u L Baso # (Auto) (0.0-0.1) 10^3/u L Nucleated RBC % (a uto) % Nucleated RBCs # /100WBC PT (12.1-14.9) SECO NDS INR (0.8-1.2) D-Dimer (0-0.59) ug/mIFE U Sodium (136-145) mmol/L Potassium (3.5-5.1) mmol/L Chloride (98-107) mmol/L Carbon Dioxide (22-29) mmol/L Anion Gap (5-19) BUN (8-23) mg/dL Creatinine (0.5-0.9) mg/dL GFR Calculation (90-130) mL/min Glucose (65-115) mg/dL Calculated Osmolal ity (285-295) mOsm/k g Lactic Acid (0.5-2.2) mmol/L Lactic Acid (Sepsi s) 2.5 H (0.5-2.2) mmol/L Calcium (8.5-10.5) mg/dL Magnesium (1.7-2.3) mg/dL Total Bilirubin (0.15-1.2) mg/dL AST (0-32) U/L ALT (0-33) U/L Alkaline Phosphata se (35-105) IU/L Troponin T Baselin e (0-10) ng/L Troponin T 120 Min [place] 10.19 H (0-10) ng/L Delta Troponin T -2.81 L (0-10) ABS# C-Reactive Protein (0.0-4.9) mg/L NT-Pro-B Natriuret Pep (0-125) pg/mL Total Protein (6.6-8.7) g/dL Albumin (3.5-5.2) g/dL Globulin (1.3-4.6) g/dL Procalcitonin (0-0.5) ng/mL SARS-CoV-2 Ag (Rap id) (Negative) Discharge Plan Discharge Prescriptions: No Action Multiple Vitamins Tablet 1 tab PO DAILY RF: 0 promethazine-DM 6.25-15 mg/5 mL syrup 5 - 10 ml PO Q4H PRN (Reason: Cough) RF: 0 prednisone 20 mg tablet 20 mg PO DAILY RF: 0 aspirin 81 mg Tablet,Delayed Release (Dr/Ec) 81 mg PO BEDTIME RF: 0 omeprazole 20 mg capsule,delayed release(DR/EC) 20 mg PO DAILY RF: 0 levofloxacin 500 mg tablet 500 mg PO DAILY RF: 0 Flonase Allergy Relief 50 mcg/actuation [place],Suspension 2 spray INTRANASAL DAILY RF: 0 glimepiride 2 mg tablet 4 mg PO BID RF: 0 fluoxetine 40 mg capsule 40 mg PO DAILY RF: 0 Referrals: Huey Whitehead MD [Primary Care Provider] - Discharge Date/Time: 11/06/19 15:06 Coding Level of Care Code ED Buying Agent for Chg Fwd Exam Comprehensive
[2019-11-06 10:27] LABS: NT Pro B Type Natriuretic Pept 137 pg/mL (0-125); Procalcitonin 0.05 ng/mL (0-0.5)
[2019-11-06 10:38] LABS: Alanine Aminotransferase 23 U/L (0-33); Albumin Level 3.8 g/dL (3.5-5.2); Alkaline Phosphatase 76 IU/L (35-105); Aspartate Amino Transferase 31 U/L (0-32); Blood Urea Nitrogen 13 mg/dL (8-23); C Reactive Protein 1.9 mg/L (0.0-4.9); Calcium 8.3 mg/dL (8.5-10.5); Carbon Dioxide 20 mmol/L (22-29); Chloride 99 mmol/L (98-107); Globulin 2.7 g/dL (1.3-4.6); Glucose 364 mg/dL (65-115); Magnesium 1.9 mg/dL (1.7-2.3); Osmolality Calculated 293 mOsm/kg (285-295); Sodium 134 mmol/L (136-145); Total Bilirubin 0.3 mg/dL (0.15-1.2); Total Protein 6.5 g/dL (6.6-8.7)
[2019-11-06 10:47] LABS: Anion Gap 18.8 (5-19); Potassium 3.8 mmol/L (3.5-5.1)
[2019-11-06 10:54] LABS: Reflex Lactate Order REFLEX LACTIC ORDERD
[2019-11-06 11:04] LABS: SARS Covid-2 Antigen Positive (Negative)
--- NOTE | 2019-11-06 11:25 | ECG_ITS ---
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 Measurements Intervals [place] Rate: 70 P: 62 VA: 146 QRS: -37 QRSD: 96 T: 38 QT: 423 QTc: 457 Interpretive Statements SINUS RHYTHM Compared to ECG 11/06/2019 10:18:52 No significant changes Electronically Signed On 11-06-2019 18:02:29 CDT by Dawson Otto M.D. [email or web address] Resourceschoctaw health centerAskuitypomerene hospital.[employer]/store/OM/[id number]
[2019-11-06] MEDS: dexamethasone 10 mg/mL INJ IVP (12:12)
[2019-11-06 12:44] LABS: Troponin 5 2HR 10.19 ng/L (0-10)
[2019-11-06 12:54] LABS: Troponin 5 2HR Delta -2.81 ABS# (0-10)
[2019-11-06 13:40] LABS: Lactic Acid level (Lactate) 2.5 mmol/L (0.5-2.2)
[2019-11-06 15:03] VITALS: BP 130/81; PULSE 81; RESP 20; TEMP 36.9; O2SAT 92
== END 2019-11-06 15:06 ==
LOC: ER 10:00
PROVIDERS: Emergency Provider Emergency Medicine; PCP Family Medicine
DX: R55 Syncope and collapse (principal); Z79.82 Long term (current) use of aspirin; E11.9 Type 2 diabetes mellitus without complications
CPT/HCPCS: 12345; 70450; 70486; 71045; 72125; 80053; 83605; 83735; 83880; 84145; 84484; 85025; 85378; 85610; 86140; 87040; 87426; 93005; 96365; 96375; 99283; 99285; J1100; J2270; J2405; J7030

== ENCOUNTER 2019-11-12 18:26 | Emergency (ER) | payer MEDICARE, SELFPAY ==
[2019-11-12 17:53] VITALS: BP 135/75; PULSE 110; RESP 10; TEMP 38; O2SAT 94; BMI 30.2
--- NOTE | 2019-11-12 17:54 | XRR_ITS ---
PROCEDURE INFORMATION: Exam: XR Chest, 1 View Exam date and time: 11/12/2019 5:58 PM Age: 69 years old Clinical indication: Shortness of breath; Patient HX: SOB, covid+; Additional info: SOB, covid+ TECHNIQUE: Imaging protocol: XR of the chest Views: 1 view. COMPARISON: CR (CHEST, ) 11/06/2019 9:37 AM FINDINGS: Lungs: Decreased inspiration with patchy atelectasis versus pneumonia in the left lower lobe. Pleural space: No pleural effusion. No pneumothorax. Heart/Mediastinum: Stable mild enlargement of the cardiac silhouette. Mediastinal contours are unremarkable. Vasculature: Stable vascular calcifications in the aorta. Bones/joints: Unremarkable for age. XR/XR chest 1V portable [id number] IMPRESSION: 1. Decreased inspiration with patchy atelectasis versus pneumonia in the left lower lobe. Recommend followup chest x-ray to ensure resolution. 2. Incidental/nonacute findings are listed in the report.
[2019-11-12 18:07] VITALS: O2SAT 95
[2019-11-12 19:15] LABS: Basophils % 0.1 %; Hematocrit 40.9 % (37.0-47.0); Hemoglobin 14.2 g/dL (11.5-15.3); Lymphocytes # 0.7 10^3/uL (0.8-4.8); Lymphocytes % 7.1 %; Mean Corpuscular HGB Conc 34.7 g/dL (30.0-36.0); Mean Corpuscular Hemoglobin 30.1 pg (28.0-34.0); Mean Corpuscular Volume 86.7 fL (81-99); Mean Platelet Volume 10.7 fL (7.4-10.4); Monocytes # 0.5 10^3/uL (0.2-0.9); Monocytes % 4.4 %; Nucleated Red Blood Cells % 0 %; Platelet Count 173 10^3/cmm (130-400); Red Blood Count 4.72 10^6/uL (4.1-5.3); Red Cell Distribution Width 12.1 % (12.1-15.1); White Blood Count 10.4 10^3/uL (4.0-10.0)
[2019-11-12 19:28] LABS: Fibrinogen 682 mg/dL (174-498); INR 1.03 (0.8-1.2)
[2019-11-12 19:31] LABS: D Dimer 0.74 ug/mIFEU (0-0.59); Lactic Sepsis W/Reflex 1.3 mmol/L (0.5-2.2)
[2019-11-12 19:35] LABS: Troponin T (5th) Once 8 ng/L (0-10)
[2019-11-12 19:43] LABS: Alanine Aminotransferase 16 U/L (0-33); Albumin Level 3.6 g/dL (3.5-5.2); Alkaline Phosphatase 75 IU/L (35-105); Anion Gap 15.4 (5-19); Aspartate Amino Transferase 25 U/L (0-32); Blood Urea Nitrogen 11 mg/dL (8-23); C Reactive Protein 79.6 mg/L (0.0-4.9); Calcium 8.2 mg/dL (8.5-10.5); Carbon Dioxide 22 mmol/L (22-29); Chloride 94 mmol/L (98-107); Creatinine Clr Calc Pharmacy 67.8443; Ferritin 983 ng/mL (15-150); Globulin 2.2 g/dL (1.3-4.6); Glomerular Filtration Rate 122.3 mL/min (90-130); Glucose 234 mg/dL (65-115); Lactate Dehydrogenase 303 U/L (135-214); NT Pro B Type Natriuretic Pept 58 pg/mL (0-125); Osmolality Calculated 273 mOsm/kg (285-295); Potassium 3.4 mmol/L (3.5-5.1); Sodium 128 mmol/L (136-145); Total Bilirubin 0.8 mg/dL (0.15-1.2); Total Protein 5.8 g/dL (6.6-8.7)
--- NOTE | 2019-11-12 21:41 | CTR_ITS ---
PROCEDURE INFORMATION: Exam: CT Angiography Chest With Contrast Exam date and time: 11/12/2019 10:56 PM Age: 69 years old Clinical indication: Condition or disease; Other: Covid+; Shortness of breath; Additional info: SOB, covid+ TECHNIQUE: Imaging protocol: Computed tomographic angiography of the chest with intravenous contrast. 3D rendering (Not supervised by radiologist): MIP and/or 3D reconstructed images were created by the technologist. Radiation optimization: All CT scans at this facility use at least one of these dose optimization techniques: automated exposure control; mA and/or kV adjustment per patient size (includes targeted exams where dose is matched to clinical indication); or iterative reconstruction. Contrast material: OMNI 360; Contrast volume: 95 ml; Contrast route: INTRAVENOUS (IV); COMPARISON: CR XR chest 1V portable [id number] 11/12/2019 5:58 PM RADIATION DOSE METRICS: Total DLP (mGy-cm): 623.21 FINDINGS: Pulmonary arteries: The pulmonary arteries are adequately opacified for evaluation to the subsegmental level. There is no filling defect to suggest embolism. Aorta: There is mild aortic atherosclerotic disease. Lungs: There is moderate severity patchy bilateral subpleural predominant lung disease characterized by ground-glass and reticular opacity. Pleural space: There is no pleural effusion or pneumothorax. Heart: Heart size is normal. There is no pericardial effusion. Mediastinal space: There is a small sliding-type hiatal hernia. Lymph nodes: Mildly prominent bilateral hilar lymph nodes. Spleen: The spleen is mildly enlarged. Bones/joints: Bones are unremarkable. Soft tissues: The extrathoracic soft tissues are unremarkable. CT/CT angio chest PE protcl [id number] IMPRESSION: 1. No pulmonary embolism. 2. Commonly reported imaging features of COVID-19 pneumonia are present. Other processes such as influenza pneumonia and organizing pneumonia (as can be seen with drug toxicity and connective tissue disease), can produce a similar imaging pattern. Radiation Dose CTDIVOL = (mGy): DLP = 623.21 (mGy-cm)
--- NOTE | 2019-11-13 00:49 | ED_ITS ---
Documented by User: Fay Park MD, [facility] 11/13/19 01:09 HPI - SOB/Dyspnea General: Chief Complaint: Shortness of Breath/Dyspnea Stated Complaint: Sob/COVID + Source: patient Mode of arrival: EMS Limitations: no limitations History of Present Illness: HPI Narrative: 6 days ago the patient had a syncopal episode and was brought to the emergency department for evaluation at that time High suspicion for COVID-19 9 she was tested here and she turned out to be positive. She was transferred to [facility] in [place] and was discharged home 2 days ago. She states that for the last 2 days she has been getting increasing shortness of breath with cough and difficulty breathing. She called the ambulance he evaluated her and they noted she was 84% on room air oxygen saturation. She was given terbutaline and Solu-Medrol prior to arrival as well as placed on oxygen. Patient has still been running a low-grade temperature MD elicited complaint: shortness of breath and cough Context: recent illness Timing: constant Severity: moderate Associated symptoms: Reports chest congestion, cough, fever(s) and myalgias; Deny chest pain, diaphoresis, dizziness, extremity pain, hemoptysis, lightheadedness, nausea, orthopnea, palpitations, paresthesias, polydipsia, polyuria, rash, sense of impending doom, syncope, vomiting or other Treatment prior to arrival: oxygen and bronchodilator Review of Systems General: Reports: 10 or more systems reviewed and unremarkable except in HPI and below Const: Reports: fever(s); Denies: diaphoresis Eyes: Denies: change in vision or blurry vision ENMT: Denies: throat pain, enlarged tonsils, odynophagia, hoarseness, mouth pain or swelling of lips/tongue Card: Denies: chest pain, palpitations, lightheadedness, syncope or orthopnea Resp: Reports: chest congestion; Denies: hemoptysis GI: Denies: nausea or vomiting : Denies: flank pain, difficulty voiding, dysuria, urinary frequency, urinary urgency or urinary hesitancy Musc: Denies: extremity pain Skin/Breast: Denies: rash, pruritus or erythema Neuro: Denies: dizziness Endo: Denies: polyuria or polydipsia PFS ED PFSH: Medical History Diabetes mellitus, type II Hepatitis A Obstructive sleep apnea on CPAP Social History Smoking and tobacco status: never smoked Alcohol intake: never Substance/Drug Use: never Physical Exam Const: COMMON NORMALS: no acute distress, average body habitus, patient oriented x3, no limitations, healthy appearing, alert and well nourished HENMT: COMMON NORMALS: normocephalic, atraumatic and moist oral mucous membranes HEAD & SCALP: normocephalic and atraumatic Eye: COMMON NORMALS: Equal, round and reactive pupils present, EOMs intact bilaterally, conjunctivae normal and no scleral icterus CONJUNCTIVA: Yes conjunctivae normal PUPIL: Yes Equal, round and reactive pupils present Neck/C-Spine: COMMON NORMALS: no meningeal signs and no JVD Resp: COMMON NORMALS: normal respiratory effort, No retractions, No use of accessory muscles, clear to auscultation bilaterally and percussion normal AUSCULTATION: clear to auscultation bilaterally PERCUSSION: percussion normal Cardio: COMMON NORMALS: no JVD, regular rate, regular rhythm, S1 normal heart sound present, S2 normal heart sound present, No gallops present (Cardio), No clicks present (Cardio), No murmurs present (Cardio), No rub (Cardio) and Peripheral pulses 2+ throughout RATE: regular rate RHYTHM: regular rhythm HEART SOUNDS: S1 normal heart sound present and S2 normal heart sound present PERIPHERAL PULSES: Peripheral pulses 2+ throughout GI: COMMON NORMALS: Normal to inspection, nondistended, normoactive bowel sounds present, Soft to palpation, non-tender, No hepatosplenomegaly present, no masses and no bruits PALPATION: Yes Soft to palpation and Yes No hepatosplenomegaly present Extremity: COMMON NORMALS: normal to inspection, full ROM, capillary refill normal, no calf tenderness and no pedal edema Neuro: COMMON NORMALS: patient oriented x3 SENSORIUM/ORIENTATION: Yes alert MENINGEAL SIGNS: Yes no meningeal signs Skin: COMMON NORMALS: no rashes or lesions noted, no wounds, turgor normal, no jaundice, no petechiae and no mottling GENERAL SKIN EXAM: no rashes or lesions noted and turgor normal Course ED course: Patient who tested positive for COVID-19 about 6 days ago and was transferred to [facility] in [place]. 2 days ago she was discharged but she has been having gradually worsening shortness of breath. She is pending a CTA of her lungs to rule out a PE. She is signed out to Dr. Simmons to complete her care Vital Signs: Vital signs: Vital Signs Temperature 100.4 F H 11/12/19 17:53 Pulse Rate 110 H 11/12/19 17:53 Respiratory Rate 10 L 11/12/19 17:53 Blood Pressure 135/75 11/12/19 17:53 Pulse Oximetry 95 11/12/19 18:07 MDM - SOB/Dyspnea Lab Data: Labs: Lab Results 11/12/19 11/12/19 11/12/19 Range/Units 19:00 19:00 19:00 WBC 10.4 H (4.0-10.0) 10^3/ uL RBC 4.72 (4.1-5.3) 10^6/u L Hgb 14.2 (11.5-15.3) g/dL Hct 40.9 (37.0-47.0) % MCV 86.7 (81-99) fL MCH 30.1 (28.0-34.0) pg MCHC 34.7 (30.0-36.0) g/dL RDW 12.1 (12.1-15.1) % Plt Count 173 (130-400) 10^3/c mm MPV 10.7 H (7.4-10.4) fL Neut % (Auto) 88.0 % Lymph % (Auto) 7.1 % [place] % (Auto) 4.4 % Eos % (Auto) 0.0 % Baso % (Auto) 0.1 % Neut # (Auto) 9.10 H (1.8-7.7) 10^3/u L Lymph # (Auto) 0.7 L (0.8-4.8) 10^3/u L [place] # (Auto) 0.5 (0.2-0.9) 10^3/u L Eos # (Auto) 0.0 (0.0-0.8) 10^3/u L Baso # (Auto) 0.0 (0.0-0.1) 10^3/u L Nucleated RBC % (a uto) 0 % Nucleated RBCs # 0.0 /100WBC PT 13.80 (12.1-14.9) SECO NDS INR 1.03 (0.8-1.2) Fibrinogen 682 H (174-498) mg/dL D-Dimer 0.74 H (0-0.59) ug/mIFE U Sodium 128 L (136-145) mmol/L Potassium 3.4 L (3.5-5.1) mmol/L Chloride 94 L (98-107) mmol/L Carbon Dioxide 22 (22-29) mmol/L Anion Gap 15.4 (5-19) BUN 11 (8-23) mg/dL Creatinine 0.5 (0.5-0.9) mg/dL GFR Calculation 122.3 (90-130) mL/min Glucose 234 H (65-115) mg/dL Calculated Osmolal ity 273 L (285-295) mOsm/k g Lactic Acid (0.5-2.2) mmol/L Calcium 8.2 L (8.5-10.5) mg/dL Ferritin 983 H (15-150) ng/mL Total Bilirubin 0.8 (0.15-1.2) mg/dL AST 25 (0-32) U/L ALT 16 (0-33) U/L Alkaline Phosphata se 75 (35-105) IU/L Lactate Dehydrogen ase 303 H (135-214) U/L Troponin T Gen 5 n g/L (0-10) ng/L C-Reactive Protein 79.6 H (0.0-4.9) mg/L NT-Pro-B Natriuret Pep 58 (0-125) pg/mL Total Protein 5.8 L (6.6-8.7) g/dL Albumin 3.6 (3.5-5.2) g/dL Globulin 2.2 (1.3-4.6) g/dL 11/12/19 11/12/19 Range/Units 19:00 19:00 WBC (4.0-10.0) 10^3/ uL RBC (4.1-5.3) 10^6/u L Hgb (11.5-15.3) g/dL Hct (37.0-47.0) % MCV (81-99) fL MCH (28.0-34.0) pg MCHC (30.0-36.0) g/dL RDW (12.1-15.1) % Plt Count (130-400) 10^3/c mm MPV (7.4-10.4) fL Neut % (Auto) % Lymph % (Auto) % [place] % (Auto) % Eos % (Auto) % Baso % (Auto) % Neut # (Auto) (1.8-7.7) 10^3/u L Lymph # (Auto) (0.8-4.8) 10^3/u L [place] # (Auto) (0.2-0.9) 10^3/u L Eos # (Auto) (0.0-0.8) 10^3/u L Baso # (Auto) (0.0-0.1) 10^3/u L Nucleated RBC % (a uto) % Nucleated RBCs # /100WBC PT (12.1-14.9) SECO NDS INR (0.8-1.2) Fibrinogen (174-498) mg/dL D-Dimer (0-0.59) ug/mIFE U Sodium (136-145) mmol/L Potassium (3.5-5.1) mmol/L Chloride (98-107) mmol/L Carbon Dioxide (22-29) mmol/L Anion Gap (5-19) BUN (8-23) mg/dL Creatinine (0.5-0.9) mg/dL GFR Calculation (90-130) mL/min Glucose (65-115) mg/dL Calculated Osmolal ity (285-295) mOsm/k g Lactic Acid 1.3 (0.5-2.2) mmol/L Calcium (8.5-10.5) mg/dL Ferritin (15-150) ng/mL Total Bilirubin (0.15-1.2) mg/dL AST (0-32) U/L ALT (0-33) U/L Alkaline Phosphata se (35-105) IU/L Lactate Dehydrogen ase (135-214) U/L Troponin T Gen 5 n g/L 8 (0-10) ng/L C-Reactive Protein (0.0-4.9) mg/L NT-Pro-B Natriuret Pep (0-125) pg/mL Total Protein (6.6-8.7) g/dL Albumin (3.5-5.2) g/dL Globulin (1.3-4.6) g/dL EKG Data^: EKG 1: Attestation: I personally reviewed and interpreted this EKG as follows: EKG Interpretation Date: 11/12/19 EKG interpretation time: 17:59 Prior EKG tracings: available for review Interpretation: Sinus tachycardia. Heart rate [address] changes Discharge Plan Discharge Patient Disposition: Xfer Other Clinical Impression: Pneumonia due to COVID-19 virus Respiratory failure Qualifiers: Chronicity: acute Respiratory failure complication: hypoxia Qualified Code(s): J96.01 - Acute respiratory failure with hypoxia Condition: Stable Referrals: Huey Whitehead MD [Primary Care Provider] - Coding Level of Care Code ED Director [facility] for Chg Fwd Exam Comprehensive Documented by User: Que Simmons, 11/13/19 03:25 HPI - SOB/Dyspnea General: Chief Complaint: Shortness of Breath/Dyspnea Stated Complaint: Sob/COVID + PFSH ED PFSH: Medical History Diabetes mellitus, type II Hepatitis A Obstructive sleep apnea on CPAP Social History Smoking and tobacco status: never smoked Alcohol intake: never Substance/Drug Use: never Course Vital Signs: Vital signs: Vital Signs Temperature 100.4 F H 11/12/19 17:53 Pulse Rate 110 H 11/12/19 17:53 Respiratory Rate 10 L 11/12/19 17:53 Blood Pressure 135/75 11/12/19 17:53 Pulse Oximetry 95 11/12/19 18:07 MDM - SOB/Dyspnea MDM Narrative: Medical decision making narrative: 69-year-old female checked out to me by Dr. Park. She presented short of breath increasing over the last 3 days after being sent home from [facility] in [facility] for viral pneumonia related to COVID-19. She is currently oxygen dependent. Her saturations on 3 L have been 93 to 96%. Her blood pressure is normal. She is mildly tachycardic, and still febrile. Her white blood cell count is 10.4. Sodium 128 potassium 3.4. Her renal function is normal. We do not have any COVID-19 unit available beds at this facility. Other facilities are full as well. [facility] had bed availability, so the patient will be transferred there. She is already had 5 days of dexamethasone as well as remdesivir. Lab Data: Labs: Lab Results 11/12/19 11/12/19 11/12/19 Range/Units 19:00 19:00 19:00 WBC 10.4 H (4.0-10.0) 10^3/ uL RBC 4.72 (4.1-5.3) 10^6/u L Hgb 14.2 (11.5-15.3) g/dL Hct 40.9 (37.0-47.0) % MCV 86.7 (81-99) fL MCH 30.1 (28.0-34.0) pg MCHC 34.7 (30.0-36.0) g/dL RDW 12.1 (12.1-15.1) % Plt Count 173 (130-400) 10^3/c mm MPV 10.7 H (7.4-10.4) fL Neut % (Auto) 88.0 % Lymph % (Auto) 7.1 % [place] % (Auto) 4.4 % Eos % (Auto) 0.0 % Baso % (Auto) 0.1 % Neut # (Auto) 9.10 H (1.8-7.7) 10^3/u L Lymph # (Auto) 0.7 L (0.8-4.8) 10^3/u L [place] # (Auto) 0.5 (0.2-0.9) 10^3/u L Eos # (Auto) 0.0 (0.0-0.8) 10^3/u L Baso # (Auto) 0.0 (0.0-0.1) 10^3/u L Nucleated RBC % (a uto) 0 % Nucleated RBCs # 0.0 /100WBC PT 13.80 (12.1-14.9) SECO NDS INR 1.03 (0.8-1.2) Fibrinogen 682 H (174-498) mg/dL D-Dimer 0.74 H (0-0.59) ug/mIFE U Sodium 128 L (136-145) mmol/L Potassium 3.4 L (3.5-5.1) mmol/L Chloride 94 L (98-107) mmol/L Carbon Dioxide 22 (22-29) mmol/L Anion Gap 15.4 (5-19) BUN 11 (8-23) mg/dL Creatinine 0.5 (0.5-0.9) mg/dL GFR Calculation 122.3 (90-130) mL/min Glucose 234 H (65-115) mg/dL Calculated Osmolal ity 273 L (285-295) mOsm/k g Lactic Acid (0.5-2.2) mmol/L Calcium 8.2 L (8.5-10.5) mg/dL Ferritin 983 H (15-150) ng/mL Total Bilirubin 0.8 (0.15-1.2) mg/dL AST 25 (0-32) U/L ALT 16 (0-33) U/L Alkaline Phosphata se 75 (35-105) IU/L Lactate Dehydrogen ase 303 H (135-214) U/L Troponin T Gen 5 n g/L (0-10) ng/L C-Reactive Protein 79.6 H (0.0-4.9) mg/L NT-Pro-B Natriuret Pep 58 (0-125) pg/mL Total Protein 5.8 L (6.6-8.7) g/dL Albumin 3.6 (3.5-5.2) g/dL Globulin 2.2 (1.3-4.6) g/dL 11/12/19 11/12/19 Range/Units 19:00 19:00 WBC (4.0-10.0) 10^3/ uL RBC (4.1-5.3) 10^6/u L Hgb (11.5-15.3) g/dL Hct (37.0-47.0) % MCV (81-99) fL MCH (28.0-34.0) pg MCHC (30.0-36.0) g/dL RDW (12.1-15.1) % Plt Count (130-400) 10^3/c mm MPV (7.4-10.4) fL Neut % (Auto) % Lymph % (Auto) % [place] % (Auto) % Eos % (Auto) % Baso % (Auto) % Neut # (Auto) (1.8-7.7) 10^3/u L Lymph # (Auto) (0.8-4.8) 10^3/u L [place] # (Auto) (0.2-0.9) 10^3/u L Eos # (Auto) (0.0-0.8) 10^3/u L Baso # (Auto) (0.0-0.1) 10^3/u L Nucleated RBC % (a uto) % Nucleated RBCs # /100WBC PT (12.1-14.9) SECO NDS INR (0.8-1.2) Fibrinogen (174-498) mg/dL D-Dimer (0-0.59) ug/mIFE U Sodium (136-145) mmol/L Potassium (3.5-5.1) mmol/L Chloride (98-107) mmol/L Carbon Dioxide (22-29) mmol/L Anion Gap (5-19) BUN (8-23) mg/dL Creatinine (0.5-0.9) mg/dL GFR Calculation (90-130) mL/min Glucose (65-115) mg/dL Calculated Osmolal ity (285-295) mOsm/k g Lactic Acid 1.3 (0.5-2.2) mmol/L Calcium (8.5-10.5) mg/dL Ferritin (15-150) ng/mL Total Bilirubin (0.15-1.2) mg/dL AST (0-32) U/L ALT (0-33) U/L Alkaline Phosphata se (35-105) IU/L Lactate Dehydrogen ase (135-214) U/L Troponin T Gen 5 n g/L 8 (0-10) ng/L C-Reactive Protein (0.0-4.9) mg/L NT-Pro-B Natriuret Pep (0-125) pg/mL Total Protein (6.6-8.7) g/dL Albumin (3.5-5.2) g/dL Globulin (1.3-4.6) g/dL Discharge Plan Discharge Patient Disposition: Xfer Other Clinical Impression: Pneumonia due to COVID-19 virus Respiratory failure Qualifiers: Chronicity: acute Respiratory failure complication: hypoxia Qualified Code(s): J96.01 - Acute respiratory failure with hypoxia Condition: Stable Referrals: Huey Whitehead MD [Primary Care Provider] - Coding Level of Care Code ED Director [facility] for Chg Fwd Exam Comprehensive
[2019-11-13] MEDS: iohexol 350 mg/mL 100 mL Btl IV (01:30)
[2019-11-13 03:14] VITALS: BP 135/73; PULSE 84; RESP 16; TEMP 37.3; O2SAT 96
--- NOTE | 2019-11-13 03:14 | PC.NURSE ---
Patient concerned over transfer to [place]. Dr. Simmons to discuss the benefits of the transfer with the patient.
--- NOTE | 2019-11-13 03:51 | PC.NURSE ---
Report called to [facility]. Domonique Hein RN accepting the patient.
[2019-11-13 05:29] VITALS: PULSE 80; RESP 16; O2SAT 96
== END 2019-11-13 05:33 | disposition other institution (70) ==
PROVIDERS: Family Medicine; Emergency Provider Emergency Medicine; PCP Family Medicine
DX: U07.1 COVID-19 (principal); J12.89 Other viral pneumonia; J96.01 Acute respiratory failure with hypoxia; E11.9 Type 2 diabetes mellitus without complications; G47.33 Obstructive sleep apnea (adult) (pediatric)
CPT/HCPCS: 12345; 36415; 71045; 71275; 80053; 82728; 83605; 83615; 83880; 84484; 85025; 85378; 85384; 85610; 86140; 87040; 99283; 99285; Q9967

== ENCOUNTER 2019-12-08 13:44 | Outpatient (CLI) | payer MEDICARE, SELFPAY ==
--- NOTE | 2019-12-08 13:49 | XRR_ITS ---
PROCEDURE INFORMATION: Exam: XR Chest, 2 Views Exam date and time: 12/08/2019 2:00 PM Age: 69 years old Clinical indication: Condition or disease; Lung condition and disease; Pneumonia TECHNIQUE: Imaging protocol: XR of the chest Views: 2 views. COMPARISON: CR XR chest 1V portable [id number] 11/12/2019 5:58 PM FINDINGS: Lungs: Bilateral opacities, predominantly peripherally distributed, minimally decreased from 11/12/2019. Pleural space: Unremarkable. No pleural effusion. No pneumothorax. Heart/Mediastinum: Unremarkable. No cardiomegaly. Bones/joints: No acute findings. XR/XR chest 2V* [id number] IMPRESSION: Bilateral pneumonia, decreased.
== END 2019-12-08 13:45 | disposition home or self-care (01) ==
LOC: RAD 13:47
PROVIDERS: PCP Family Medicine; Visit Provider Family Medicine
DX: J18.9 Pneumonia, unspecified organism (principal)
CPT/HCPCS: 71046

== ENCOUNTER 2020-02-09 08:32 | Outpatient (CLI) | payer MEDICARE, SELFPAY ==
--- NOTE | 2020-02-09 08:47 | MM_ITS ---
WS: [id number] BILATERAL DIGITAL SCREENING MAMMOGRAPHY WITH CAD CLINICAL INFORMATION: SCREENING HISTORY: Screening mammogram. No current complaints. COMPARISON: October 20, 2018 TECHNIQUE: Bilateral CC and MLO views. FINDINGS: Scattered fibroglandular densities bilaterally. Dense band of parenchymal tissue upper outer right br east is unchanged. Lucent centered calcifications. No suspicious focal mass, asymmetry, calcification s, or architectural distortion. No evidence of malignancy. MM/[id number] IMPRESSION: BI-RADS: 2-Benign FOLLOW UP: 1 Year Follow-up Recommend return to annual screening mammography.
== END 2020-02-09 08:33 | disposition home or self-care (01) ==
LOC: RADSHAW 08:36
PROVIDERS: PCP Family Medicine; Visit Provider Family Medicine
DX: Z12.31 Encounter for screening mammogram for malignant neoplasm of breast (principal)
CPT/HCPCS: 77067

== ENCOUNTER 2020-03-01 08:33 | Outpatient (CLI) | payer MEDICARE, SELFPAY ==
--- NOTE | 2020-03-01 09:18 | PFTS_ITS ---
Date of Study:03/01/20 Date of Dictation: MECHANICS: Forced vital capacity (FVC) is reduced. Forced expiratory volume in one second (FEV1) is reduced. FEV1/FVC is normal. FLOW VOLUME LOOP: Mild scooping. LUNG VOLUMES: Total lung capacity (TLC) is reduced. Residual volume (RV) is reduced. DIFFUSING CAPACITY FOR CARBON MONOXIDE: Normal. INTERPRETATION: The prebronchodilator spirometry is consistent with mild restriction. Lung volumes are consistent with mild restriction. Gas exchange (DLCO) is normal. MTDD
== END 2020-03-01 08:34 | disposition home or self-care (01) ==
LOC: RT 08:36
PROVIDERS: PCP Family Medicine; Visit Provider Family Medicine
DX: R06.00 Dyspnea, unspecified (principal)
CPT/HCPCS: 94010; 94726; 94729

== ENCOUNTER 2021-05-30 10:53 | Outpatient (CLI) | payer MEDICARE, SELFPAY ==
--- NOTE | 2021-05-30 11:13 | MM_ITS ---
WS: [id number] Bilateral screening 3D tomosynthesis digital mammogram, 05/30/2021 Clinical Data: SCREENING Comparison: 02/09/2020, 10/20/2018, 09/10/2017, 07/22/2016, 06/30/2015, 05/09/2011, 11/10/2009, 01/14/1997. Findings: The breast parenchymal pattern shows fibroglandular tissue No spiculated masses or clustered calcific ations are seen. There are no secondary signs of carcinoma. There are mole markers on the left breast . MM/[id number] Impression: 1. Negative bilateral mammogram unchanged. 2. Recommend annual screening mammograms. BIRADS: 1-Negative FOLLOW UP: 1 Year Follow-up The CAD time checker was used.
== END 2021-05-30 10:54 | disposition home or self-care (01) ==
LOC: RAD 11:00
PROVIDERS: PCP Family Medicine; Visit Provider Family Medicine
DX: Z12.31 Encounter for screening mammogram for malignant neoplasm of breast (principal)
CPT/HCPCS: 77063; 77067

== ENCOUNTER → 2021-08-27 08:53 | Outpatient (BNVA) | payer MEDICARE, SELFPAY | PROVIDERS: PCP Family Medicine; Visit Provider Family Medicine | DX: R79.89 Other specified abnormal findings of blood chemistry (principal); E78.5 Hyperlipidemia, unspecified; I10 Essential (primary) hypertension | CPT/HCPCS: 80053; 80061; 83036 ==

== ENCOUNTER 2021-10-12 06:13 | Emergency (ER) | payer MEDICARE, SELFPAY ==
--- NOTE | 2021-10-12 06:17 | W.ED.FALL ---
HPI - Fall General: Chief Complaint: Fall Stated Complaint: Fall, face lac Time Seen by Provider: 10/12/21 06:16 History of Present Illness: Mrs. Saunders is a 71-year-old lady with significant past medical history of diabetes who presents to the ER for evaluation of fall with head injury. She reports being at her baseline health the past few days. She was walking and is slightly unsure of what happened though thinks that she just tripped and fell to the ground hitting her face and left knee. She denies loss of consciousness but did report feeling dazed afterwards. She required assistance to get up and was subsequently put in a wheelchair. Unsure of last tetanus shot. Currently has moderate intensity head pain and left knee pain which is mild. Aching in quality. No other specific changes in health, exacerbating, or alleviating factors identified. Onset (ago): minute(s) Fall from: standing Fall witnessed: yes, by bystander Place fall occurred: home Loss of consciousness: None Prolonged down time: no Symptoms prior to fall: none Context: tripped/slipped Location of injury: face Location of injury - extremities: Left: knee Severity: moderate Review of Systems General: Reports: 10 or more systems reviewed and unremarkable except in HPI and below PFSH ED PFSH: Medical History (Updated 10/12/21 @ 08:00 by Jorge Treadwell MD) Diabetes mellitus, type II Hepatitis A Obstructive sleep apnea on CPAP Social History Smoking and tobacco status: never smoked Alcohol intake: never Physical Exam Const: COMMON NORMALS: alert GENERAL APPEARANCE: cooperative and well developed HENMT: COMMON NORMALS: normocephalic HEAD & SCALP: normocephalic THROAT: posterior oropharynx normal OTHER: Approximately 2 cm laceration obliquely oriented roughly from the edge of the left eyebrow towards the ear. No active hemorrhage. No silva signs or raccoon eyes. No otorrhea or rhinorrhea. Jaw alignment normal. Dentition baseline. No obvious bony step-offs. No septal hematoma. No evidence of ocular entrapment. Eye: COMMON NORMALS: conjunctivae normal CONJUNCTIVA: Yes conjunctivae normal SCLERA: sclerae normal Neck/C-Spine: COMMON NORMALS: supple GENERAL: Yes trachea midline Resp: COMMON NORMALS: clear to auscultation bilaterally EFFORT & INSPECTION: Yes able to speak in complete sentences AUSCULTATION: clear to auscultation bilaterally Cardio: COMMON NORMALS: regular rate and regular rhythm RATE: regular rate RHYTHM: regular rhythm GI: COMMON NORMALS: Soft to palpation PALPATION: Yes Soft to palpation and No Tenderness to palpation present (GI) PERCUSSION: normal to percussion Extremity: GENERAL: Yes normal exam except as noted and No edema Neuro: COMMON NORMALS: moves all extremities SENSORIUM/ORIENTATION: Yes alert and No Orientation impaired Psych: COMMON NORMALS: mental status grossly normal and Normal thought process present THOUGHT PROCESS: Normal thought process present Procedures Laceration Laceration 1: Site: face Side (If applicable): left Size (cm): 2 Description: linear Depth: simple, single layer Pre-repair: wound explored, irrigated extensively and deep structures intact Skin layer closed with: other (Dermabond) Course Vital Signs: Vital signs: Vital Signs Temperature 98.0 F 10/12/21 06:18 Pulse Rate 79 10/12/21 06:18 Respiratory Rate 18 10/12/21 07:02 Blood Pressure 123/75 10/12/21 06:18 Pulse Oximetry 96 10/12/21 06:18 Oxygen Delivery Me thod 10/12/21 06:18 MDM - Fall Medical Decision Making 71-year-old lady presenting with fall somewhat unclear etiology though likely mechanical with knee and head injury. Head to toe exam performed. Given severity of head strike imaging felt to be warranted. X-ray reviewed. Approximately 2 cm laceration repaired with Dermabond. CT notable for 4 mm traumatic subdural hematoma. No evidence of midline shift. Patient is neurovascularly intact. Given that we do not have neurosurgery patient requires trauma transfer. Patient accepted by Dr. Oneill at [facility] ER to ER. Given potential risk of significant life-threatening deterioration patient requires expeditious expeditious means of transfer. Left emergency department with neftali in similar condition. Medical Records I reviewed the patient's medical records. Lab Data I reviewed the patient's lab results. : 10/12/21 08:12 10/12/21 08:12 Radiology Impressions Cervical Spine CT 10/12/21 06:39 IMPRESSION: No acute fracture. Head CT 10/12/21 06:39 IMPRESSION: Right frontotemporoparietal subdural hematoma measuring 4 mm in thickness. No midline shift. ADDENDUM: 10/12/21 0752 THIS REPORT CONTAINS FINDINGS THAT MAY BE CRITICAL TO PATIENT CARE. The findings were verbally communicated via telephone conference with Dr. Treadwell at 749 AM [employer] on 10/12/2021. The findings were acknowledged and understood. Knee X-Ray 10/12/21 06:41 IMPRESSION: No acute injury. Discharge Plan Discharge Patient Disposition: Transfer to ED Clinical Impression: Traumatic subdural hemorrhage, Fall, Laceration of face Condition: Stable Prescriptions: No Action multivitamin [Multiple Vitamins] Tablet 1 tab PO DAILY promethazine-DM 6.25-15 mg/5 mL syrup 5 - 10 ml PO Q4H PRN (Reason: Cough) aspirin 81 mg Tablet,Delayed Release (Dr/Ec) 81 mg PO BEDTIME omeprazole 20 mg capsule,delayed release(DR/EC) 20 mg PO DAILY fluticasone propionate [Flonase Allergy Relief] 50 mcg/actuation [place],Suspension 2 spray INTRANASAL DAILY metformin 500 mg Tablet Extended Release 24hr 500 mg PO BID Vitamin D3 25 mcg (1,000 unit) Tablet 25 mcg PO DAILY glimepiride 2 mg tablet 4 mg PO BID fluoxetine 40 mg capsule 40 mg PO DAILY Referrals: Huey Whitehead MD [Primary Care Provider] - Coding Level of Care Code ED [employer] for Chg Fwd Exam Comprehensive
[2021-10-12 06:18] VITALS: BP 123/75; PULSE 79; RESP 16; TEMP 36.7; O2SAT 96; BMI 30.1
--- NOTE | 2021-10-12 06:36 | PC.NURSE ---
patient was walking outside and stumbled on uneven concrete and fell striking left side of eye and cheek. No loc. was taken back to her home via w/c by her friend who was walking with her. She has approx 4 cm lac to lateral aspect left eye orbit with hematoma to left cheekbone. bleeding controlled. Is not on blood thinners.
--- NOTE | 2021-10-12 06:39 | CTR_ITS ---
PROCEDURE INFORMATION: Exam: CT Cervical Spine Without Contrast Exam date and time: 10/12/2021 6:49 AM Age: 71 years old Clinical indication: Injury or trauma; Fall; Blunt trauma; Additional info: Fall, head injury TECHNIQUE: Imaging protocol: Computed tomography of the cervical spine without contrast. Radiation optimization: All CT scans at this facility use at least one of these dose optimization techniques: automated exposure control; mA and/or kV adjustment per patient size (includes targeted exams where dose is matched to clinical indication); or iterative reconstruction. COMPARISON: CT cervical spin wo con* [id number] 11/06/2019 9:55 AM RADIATION DOSE METRICS: Total DLP (mGy-cm): 252.9 FINDINGS: Bones/joints: No acute fracture. Normal alignment. Mild degenerative changes including disc space narrowing endplate spurring most prominent at C3-C4 and C7-T1. No critical central canal stenosis. Lungs: No pneumothorax. Too small to characterize right apical nodule measuring 1-2 mm. Soft tissues: Unremarkable. CT/CT cervical spin wo con* [id number] IMPRESSION: No acute fracture.
--- NOTE | 2021-10-12 06:39 | CTR_ITS ---
PROCEDURE INFORMATION: Exam: CT Head Without Contrast Exam date and time: 10/12/2021 6:49 AM Age: 71 years old Clinical indication: Injury or trauma; Fall; Blunt trauma (contusions or hematomas) and laceration; Without loss of consciousness; Without residual foreign body; Eye; Left; Additional info: Fall, headstrike TECHNIQUE: Imaging protocol: Computed tomography of the head without contrast. Radiation optimization: All CT scans at this facility use at least one of these dose optimization techniques: automated exposure control; mA and/or kV adjustment per patient size (includes targeted exams where dose is matched to clinical indication); or iterative reconstruction. COMPARISON: CT head wo con* [id number] 11/06/2019 9:48 AM RADIATION DOSE METRICS: Total DLP (mGy-cm): 1118.7 FINDINGS: Brain: Right frontotemporoparietal subdural hematoma measuring 4 mm in thickness. No midline shift. Left frontal and right cerebellar encephalomalacia. Otherwise carpio-white matter differentiation preserved. No edema or mass effect. Periventricular and deep white matter hypodensities compatible with chronic microvascular ischemic changes. Cerebral ventricles: No ventriculomegaly. Paranasal sinuses: Visualized sinuses are unremarkable. No fluid levels. Mastoid air cells: No mastoid effusion. Bones/joints: No acute fracture. Soft tissues: Unremarkable. CT/CT head wo con* [id number] IMPRESSION: Right frontotemporoparietal subdural hematoma measuring 4 mm in thickness. No midline shift.
--- NOTE | 2021-10-12 06:41 | XRR_ITS ---
PROCEDURE INFORMATION: Exam: XR Left Knee Exam date and time: 10/12/2021 7:06 AM Age: 71 years old Clinical indication: Injury or trauma; Fall; Blunt trauma; Injury details: Fell 1 hour ago pain to left knee; Additional info: Fall, knee pain TECHNIQUE: Imaging protocol: Radiologic exam of the Left knee. Views: 3 views. COMPARISON: No relevant prior studies available. FINDINGS: Bones/joints: No fracture or dislocation. Mild degenerative changes, manifested by joint space narrowing and small periarticular osteophytes. Soft tissues: Normal. XR/XR knee LT 3V* [id number] IMPRESSION: No acute injury.
[2021-10-12] MEDS: tetanus-dipt-pertussis 0.5 mL SDV IM (07:00)
[2021-10-12 07:02] VITALS: RESP 18
[2021-10-12] MEDS: morphine 4 mg/mL SDV 1 mL IM (07:02)
[2021-10-12 08:46] LABS: Basophils % 0.5 %; Eosinophils # 0.1 10^3/uL (0.0-0.8); Eosinophils % 1.8 %; Hematocrit 44.8 % (37.0-47.0); Hemoglobin 14.5 g/dL (11.5-15.3); Lymphocytes # 2.8 10^3/uL (0.8-4.8); Lymphocytes % 36.3 %; Mean Corpuscular HGB Conc 32.4 g/dL (30.0-36.0); Mean Corpuscular Volume 89.6 fl (81-99); Monocytes # 0.5 10^3/uL (0.2-0.9); Monocytes % 6.6 %; Neutrophils % 54.5 %; Nucleated Red Blood Cells % 0 %; Platelet Count 252 10^3/cmm (130-400); Red Cell Distribution Width 12.3 % (12.1-15.1); White Blood Count 7.7 10^3/uL (4.0-10.0)
[2021-10-12 08:57] LABS: INR 0.88 (0.8-1.2)
[2021-10-12 08:58] LABS: Partial Thromboplastin Time 27.4 SECONDS (23.9-36.7)
[2021-10-12 09:15] LABS: Alanine Aminotransferase 19 U/L (0-33); Albumin Level 4.7 g/dL (3.5-5.2); Alkaline Phosphatase 80 U/L (35-105); Anion Gap 13.8 (5-19); Aspartate Amino Transferase 22 U/L (0-32); Blood Urea Nitrogen 10 mg/dL (8-23); Calcium 9.1 mg/dL (8.5-10.5); Carbon Dioxide 28 mmol/L (22-29); Chloride 104 mmol/L (98-107); Globulin 2.3 g/dL (1.3-4.6); Glucose 127 mg/dL (65-115); Osmolality Calculated 293 mOsm/kg (285-295); Potassium 4.8 mmol/L (3.5-5.1); Sodium 141 mmol/L (136-145); Total Bilirubin 0.5 mg/dL (0.15-1.2)
== END 2021-10-12 08:47 ==
PROVIDERS: Emergency Provider Emergency Medicine; PCP Family Medicine
DX: S01.81XA Laceration without foreign body of other part of head, initial encounter (principal); S06.5X9A Traumatic subdural hemorrhage with loss of consciousness of unspecified duration, initial encounter; Z79.82 Long term (current) use of aspirin; Z79.84 Long term (current) use of oral hypoglycemic drugs; E11.9 Type 2 diabetes mellitus without complications; W01.0XXA Fall on same level from slipping, tripping and stumbling without subsequent striking against object, initial encounter; Z23 Encounter for immunization
CPT/HCPCS: 12011; 70450; 72125; 73562; 80053; 85025; 85610; 85730; 90471; 90715; 96372; 99285; J2270

== ENCOUNTER → 2021-11-22 08:06 | Outpatient (BNVA) | payer MEDICARE, SELFPAY | PROVIDERS: PCP Family Medicine; Visit Provider Family Medicine | DX: K85.90 Acute pancreatitis without necrosis or infection, unspecified (principal); R94.5 Abnormal results of liver function studies; E11.9 Type 2 diabetes mellitus without complications | CPT/HCPCS: 80053; 80061; 83036 ==

== ENCOUNTER → 2021-12-24 16:34 | Outpatient (BNVA) | payer MEDICARE, SELFPAY | PROVIDERS: Visit Provider Family Medicine | DX: Z12.11 Encounter for screening for malignant neoplasm of colon (principal); M81.0 Age-related osteoporosis without current pathological fracture; E11.9 Type 2 diabetes mellitus without complications; R30.0 Dysuria; R32 Unspecified urinary incontinence | CPT/HCPCS: 81000; 82043 ==

== ENCOUNTER 2022-01-15 12:24 | Outpatient (CLI) | payer MEDICARE, SELFPAY ==
--- NOTE | 2022-01-15 13:30 | XR_ITS ---
WS: [id number] SCREENING DEXA SCAN True Style CLINICAL INFORMATION: Osteoporosis COMPARISON: 2017 FINDINGS: The L1-L4 bone mineral density measures 1.049 g/cm2. This corresponds to a T score score of -1.1 and Z score of 0.2. Left femoral neck bone mineral density measures 0.874 g/cm2. This corresponds to a T score of -1.1 an d Z score of 0.2. Right femoral neck bone mineral density measures 0.967 g/cm2. This corresponds to a T score -0.3of an d Z score of 0.9. Mean femoral neck bone mineral density measures 0.921 g/cm2. This corresponds to a T score of -0.7 an d Z score of 0.6. XR/XR DEXA axial skeleton* [id number] IMPRESSION: Osteopenia lumbar spine. Normal bone mineralization femoral necks. Patient's FRAX calculated 10 year probability for major osteoporotic fracture i s 18.5 % and osteoporotic hip fracture is 3.7%. Bone mineral density lumbar spine has increased +4.8% compared to 2017. Bone mineral density in the femoral necks decreased -5.8% since 2017
== END 2022-01-15 12:25 | disposition home or self-care (01) ==
LOC: RAD 12:26
PROVIDERS: Visit Provider Family Medicine
DX: M81.0 Age-related osteoporosis without current pathological fracture (principal)
CPT/HCPCS: 77080

== ENCOUNTER → 2022-01-24 07:19 | Outpatient (BNVA) | payer MEDICARE, SELFPAY | PROVIDERS: Visit Provider Podiatrist Foot & Ankle Surgery | DX: E11.42 Type 2 diabetes mellitus with diabetic polyneuropathy (principal); L60.3 Nail dystrophy; L84 Corns and callosities; M20.41 Other hammer toe(s) (acquired), right foot; M20.42 Other hammer toe(s) (acquired), left foot | CPT/HCPCS: 11750; 99204 ==

== ENCOUNTER → 2022-02-05 08:16 | Outpatient (BNVA) | payer MEDICARE, SELFPAY | PROVIDERS: PCP Family Medicine; Visit Provider Surgery | DX: Z86.010 Personal history of colon polyps (principal) | CPT/HCPCS: 99203 ==

== ENCOUNTER → 2022-02-13 07:19 | Outpatient (BNVA) | payer MEDICARE, SELFPAY | PROVIDERS: PCP Family Medicine; Visit Provider Podiatrist Foot & Ankle Surgery | DX: E11.42 Type 2 diabetes mellitus with diabetic polyneuropathy (principal); L60.3 Nail dystrophy; L84 Corns and callosities; M20.41 Other hammer toe(s) (acquired), right foot; M20.42 Other hammer toe(s) (acquired), left foot; Z98.890 Other specified postprocedural states | CPT/HCPCS: 99214 ==

== ENCOUNTER 2022-02-20 06:21 | Day surgery (SDC) | payer MEDICARE, SELFPAY ==
[2022-02-15 09:24] VITALS: BMI 30.8
[2022-02-20 06:47] VITALS: BP 148/76; PULSE 84; RESP 16; TEMP 36.3; O2SAT 95
[2022-02-20] MEDS: sodium chloride 0.9% 1,000 ML 30 ML IV (06:47)
[2022-02-20 07:00] LABS: Glucose Point of Care 177 mg/dL (70-110)
--- NOTE | 2022-02-20 07:03 | ANES.PREANE2 ---
Pre-Anesthetic Assessment Height/Weight: Height 1.6 m Weight 78.925 kg Temp Pulse Resp BP Pulse Ox O2 Del Method 97.4 F L 84 16 148/76 95 02/20/22 06:47 02/20/22 06:47 02/20/22 06:47 02/20/22 06:47 02/20/22 06:47 02/20/22 06:47 Preop Diagnosis: screening Operation Date: 02/20/22 08:30 Proposed Procedures p Colonoscopy 51485,Z86.010(Not Applicable) - Todd Ruiz, DO Was Beta Merly taken within 24 hours: N/A Was Clonidine taken within 24 hours: N/A Last intake: Intake Last Liquid Date 02/19/22 Last Liquid Time 20:00 Last Solid Date 02/18/22 Last Solid Time 16:00 Social No alcohol and No tobacco Exam alert, oriented x 3, clear to auscultation bilaterally and regular rate & rhythm Airway Submandibular: within normal limits Cervical ROM: within normal limits History/ROS No significant history except as noted and No significant complaints Pulmonary Sleep Apnea uses cpap each night CV/HEM Hypertension HLD. METS > 4 None reported Hepatic Hepatitis GI Gastroesophageal Reflux Disease controlled Metabolic Diabetes Mellitus and Hyperlipidemia [facility] [place] None reported Neuropsych Depression Anesthetic Plan ASA status: 3 Anesthesia: Anesthesia Evaluation and MAC Risk of > 500 ml blood loss (7ml/kg in children): No Medications/Allergies Home Medications Medication Instructions Recorded Confirmed Last Taken Type fluoxetine 40 mg capsule (Prozac) 40 mg PO DAILY 03/25/19 02/20/22 02/19/22 History glimepiride 2 mg tablet 4 mg PO BID 03/25/19 02/20/22 02/19/22 History fluticasone propionate 50 2 spray intranasal DAILY PRN 11/06/19 02/20/22 02/19/22 History mcg/actuation nasal Congestion spray,suspension (Flonase Allergy Relief) multivitamin (Multiple Vitamins 1 tab PO DAILY 11/06/19 02/20/22 02/19/22 History tablet) cholecalciferol (vitamin D3) 25 25 mcg PO DAILY 11/12/19 02/20/22 02/19/22 History mcg (1,000 unit) tablet (Vitamin D3) atorvastatin 10 mg tablet 10 mg PO DAILY 11/27/21 02/20/22 02/19/22 History diabetic shoes #1 ea 11/07/22 01/04/23 01/03/23 Rx lisinopril 5 mg tablet 5 mg PO DAILY #90 tabs 01/11/22 02/20/22 02/19/22 Rx Diabetic Shoes with 3 pairs of #1 ea 01/24/22 02/20/22 02/19/22 Rx Inserts azithromycin 250 mg tablet See Rx Instructions PO .COMPLEX #6 02/12/22 02/20/22 02/19/22 Rx tabs benzonatate 200 mg capsule 200 mg PO TID PRN cough #20 caps 02/12/22 02/20/22 02/19/22 Rx denosumab 60 mg/mL subcutaneous 60 mg SUBCUT .[id number] 02/15/22 02/20/22 01/25/22 History syringe (Prolia) dextromethorphan-guaifenesin 20 5 ml PO Q4H PRN cough 02/15/22 02/20/22 02/18/22 History mg-300 mg/5 mL oral liquid (Expectorant DM) omeprazole 20 mg capsule,delayed 20 mg PO DAILY 02/15/22 02/20/22 02/19/22 History release Allergies Allergy/AdvReac Type Severity Reaction Status Date / Time No Known Allergies Allergy Verified 02/20/22 06:46 Current Medications Generic Name Dose Route Start Last Admin Trade Name Freq PRN Reason Stop Dose Admin Sodium Chloride 1,000 mls @ 30 mls/hr 02/20/22 06:45 02/20/22 06:47 Sodium Chloride 0.9% IV 02/21/22 06:44 30 mls/hr .Q24H DANAE Administration PFSH Anesthesia Medical History Acute bronchitis and bronchiolitis Diabetes mellitus, type II Hepatitis A History of colon polyps Obstructive sleep apnea on CPAP Surgical History History of cataract surgery History of hysterectomy Hx of breast reduction, elective Hx of cholecystectomy Hx of colonoscopy Family History Sister Cancer Mother Brain mass . Father Cirrhosis of liver, Onset Age: 50 . Social History Smoking and tobacco status: former smoker Alcohol intake: never Adopted: No Caregiver/support person: No Lives independently: No Household members: spouse Housing: House Marital status: Number of children: 2 Number of grandchildren: 2 Highest education level completed: High School Graduate Current occupational exposures/hazards: No History of recent travel: No Current gender identity: Female Female Reproductive History Spontaneous abortions: No Data Anesthesia Cardiac Studies: No Data to Display
--- NOTE | 2022-02-20 07:50 | W.PM.OPSUD ---
Surgery/Procedure H&P Update DATE OF PROCEDURE: February 20, 2022 DATE H&P PERFORMED: 02/05/22 PREOP DIAGNOSIS: screening PLANNED PROCEDURE: Operation Date: 02/20/22 08:30 Proposed Procedures p Colonoscopy 70865,Z86.010(Not Applicable) - Todd Ruiz DO
[2022-02-20 08:34] VITALS: BP 128/70; PULSE 79; RESP 14; TEMP 36.4; O2SAT 96
[2022-02-20 08:44] VITALS: BP 131/74; PULSE 78; RESP 18; O2SAT 96
--- NOTE | 2022-02-20 17:34 | ANE.PACU2 ---
Inpatient post-anesthesia follow up: Airway intact: Yes Vital signs: Temperature 97.5 F Pulse Rate 78 Respiratory Rate 18 Blood Pressure 131/74 Pulse Oximetry 96 Oxygen Delivery Me thod Room Air Oxygen Flow Rate Fraction of Inspir ed Oxygen Hydration adequate: Yes Nausea and vomiting: No Pain level: 1 Mental status: Baseline
== END 2022-02-20 08:58 | disposition home or self-care (01) ==
PROVIDERS: PCP Family Medicine; Visit Provider Surgery
PROC: 0DJD8ZZ Inspection of Lower Intestinal Tract, Via Natural or Artificial Opening Endoscopic (ICD-10-PCS; CPT 45378; principal; 2022-02-20 08:30)
DX: Z12.11 Encounter for screening for malignant neoplasm of colon (principal); K57.30 Diverticulosis of large intestine without perforation or abscess without bleeding; Z86.010 Personal history of colon polyps; G47.30 Sleep apnea, unspecified; I10 Essential (primary) hypertension; K21.9 Gastro-esophageal reflux disease without esophagitis; E11.9 Type 2 diabetes mellitus without complications; E78.5 Hyperlipidemia, unspecified; G47.33 Obstructive sleep apnea (adult) (pediatric); Z87.891 Personal history of nicotine dependence
CPT/HCPCS: 36416; 82962; G0121; J2704; J7030

== ENCOUNTER 2022-03-16 13:40 | Emergency (ER) | payer MEDICARE, SELFPAY ==
[2022-03-16 13:44] VITALS: BP 153/90; PULSE 81; RESP 16; TEMP 36.7; O2SAT 98
--- NOTE | 2022-03-16 15:00 | W.ED.EYEPROB ---
HPI - Eye Problem General: Chief complaint: Eye Problems Stated complaint: Left eye pain Time Seen by Provider: 03/16/22 15:00 Source: patient Mode of arrival: wheelchair Limitations: no limitations History of Present Illness: Patient is a 71-year-old female who presents to ED today requesting that we remove her Prokera medicated contact ring that was placed by Dr. Matthews's office yesterday. Patient states it was placed due to extremely dry eyes. Patient states she is not tolerating it well and would like it removed. She states she has had it placed two other times before. chief complaint: eye pain and foreign body Onset (ago): day(s) Duration: constant Location: left eye Place: other (placed by storage battery inspector and tester) Severity: moderate Associated symptoms: Reports no associated symptoms Treatments Prior to Arrival: OTC eye drops (uses chronically) Review of Systems Eyes: Reports: other (prokera contact to L eye); Denies: change in vision, blurry vision, blind spots, floaters or seeing flashes PFSH ED PFSH: Medical History Acute bronchitis and bronchiolitis Diabetes mellitus, type II Hepatitis A History of colon polyps Obstructive sleep apnea on CPAP Surgical History History of cataract surgery History of hysterectomy Hx of breast reduction, elective Hx of cholecystectomy Hx of colonoscopy Family History Sister Cancer Mother Brain mass . Father Cirrhosis of liver, Onset Age: 50 . Social History Smoking and tobacco status: former smoker Alcohol intake: never Adopted: No Caregiver/support person: No Lives independently: No Household members: spouse Housing: House Marital status: Number of children: 2 Number of grandchildren: 2 Highest education level completed: High School Graduate Current occupational exposures/hazards: No History of recent travel: No Current gender identity: Female Female Reproductive History: Spontaneous abortions: No Physical Exam Const: COMMON NORMALS: no acute distress, average body habitus, no limitations, alert and well nourished Eye: COMMON NORMALS: Equal, round and reactive pupils present and EOMs intact bilaterally GENERAL EYE: normal light reflex PERIORBITAL: periorbital findings normal EYELID: eyelids normal PUPIL: Yes Equal, round and reactive pupils present DIRECT OPHTHALMOSCOPY: Yes normal light reflex OTHER: prokera medicated corneal contact lens noted to L eye; no abnormalities noted Neuro: SENSORIUM/ORIENTATION: Yes alert Course Consultations: Consultation #1: Osbaldo Owens PA-C-states Prokera contact lens can be removed safely here but states he could/would also remove in office if needed today Vital Signs: Vital signs: Vital Signs Temperature 98.0 F 03/16/22 13:44 Pulse Rate 81 03/16/22 13:44 Respiratory Rate 16 03/16/22 13:44 Blood Pressure 153/90 03/16/22 13:44 Pulse Oximetry 98 03/16/22 13:44 Oxygen Delivery Me thod 03/16/22 13:44 MDM - Eye Problem Medical Decision Making Contact lens was removed here without difficulty. Patient feeling immediate relief. She has an appointment on Friday for follow up. Return to ED precautions given. Discharge Plan Discharge Patient Disposition: Home Clinical Impression: Foreign body of left eye Qualifiers: Encounter type: initial encounter Qualified Code(s): T15.92XA - Foreign body on external eye, part unspecified, left eye, initial encounter Condition: Stable Prescriptions: No Action atorvastatin 10 mg tablet 10 mg PO DAILY albuterol sulfate 90 mcg/actuation HFA aerosol inhaler 1 inh inhalation QID PRN (Reason: shortness of breath or wheezing) Qty: 8.5 1RF (DME) Diabetic Shoes with 3 pairs of Inserts See Rx Instructions .Route .MEDSUPPLY Qty: 1 0RF Rx Instructions: As directed by HOME (DME) diabetic shoes See Rx Instructions .Route .MEDSUPPLY Qty: 1 1RF Rx Instructions: Please issue Diabetic shoes. Foot Exam performed on 12/24/21. azithromycin 250 mg tablet See Rx Instructions PO .COMPLEX Qty: 6 0RF Rx Instructions: For 250 mg dose pack: take 500 mg today (day 1), then 250 mg for 4 days (days 2-5) PO benzonatate 200 mg capsule 200 mg PO TID PRN (Reason: cough) Qty: 20 0RF lisinopril 5 mg tablet 5 mg PO DAILY Qty: 90 1RF multivitamin [Multiple Vitamins] Tablet 1 tab PO DAILY fluticasone propionate [Flonase Allergy Relief] 50 mcg/actuation [place],Suspension 2 spray INTRANASAL DAILY PRN (Reason: Congestion) cholecalciferol (vitamin D3) [Vitamin D3] 25 mcg (1,000 unit) Tablet 25 mcg PO DAILY glimepiride 2 mg tablet 4 mg PO BID fluoxetine [Prozac] 40 mg capsule 40 mg PO DAILY omeprazole 20 mg capsule,delayed release(DR/EC) 20 mg PO DAILY Rx Instructions: TAKE 1 CAPSULE EVERY DAY FOR GERD Expectorant DM 20-300 mg/5 mL liquid 5 ml PO Q4H PRN (Reason: cough) Rx Instructions: Can substitute to dose available Prolia 60 mg/mL syringe 60 mg SUBCUT .[id number] Discharge Orders: Discharge ED (Routine); Ordered 03/16/22 Ordered By: Kristin Robert Referrals: Siddharth Cunningham DO [Primary Care Provider] - Activity Restrictions/Additional Instructions: Follow-up with Dr. Matthews' office on Friday as scheduled. 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
== END 2022-03-16 15:53 | disposition home or self-care (01) ==
PROVIDERS: Emergency Provider Physician Assistant; PCP Family Medicine
DX: T15.82XA Foreign body in other and multiple parts of external eye, left eye, initial encounter (principal); Z79.84 Long term (current) use of oral hypoglycemic drugs; Z87.891 Personal history of nicotine dependence; E11.9 Type 2 diabetes mellitus without complications; X58.XXXA Exposure to other specified factors, initial encounter
CPT/HCPCS: 99282

== ENCOUNTER 2022-04-23 00:49 | Emergency (ER) | payer MEDICARE, SELFPAY ==
[2022-04-23 00:59] VITALS: BP 153/85; PULSE 93; RESP 15; O2SAT 95
--- NOTE | 2022-04-23 01:04 | XRR_ITS ---
PROCEDURE INFORMATION: Exam: XR Chest Exam date and time: 04/23/2022 1:09 AM Age: 71 years old Clinical indication: Prior surgery; Surgery type: Gb. Breast reduction; Patient HX: C/O persistent cough x 2 weeks. TECHNIQUE: Imaging protocol: Radiologic exam of the chest. Views: 1 view. COMPARISON: CR XR chest 2V* [id number] 12/08/2019 1:54 PM FINDINGS: Lungs: No consolidation. Pleural spaces: No pleural effusion. No pneumothorax. Heart/Mediastinum: No cardiomegaly. Bones/joints: No acute fracture. XR/XR chest 1V portable [id number] IMPRESSION: No acute cardiopulmonary findings.
[2022-04-23] MEDS: naproxen 500 mg Tablet PO (01:09)
--- NOTE | 2022-04-23 01:10 | W.ED.BACK ---
HPI - Back Pain/Injury General: Chief Complaint: Back Pain/Injury Stated Complaint: Couch\Back Pain Time Seen by Provider: 04/23/22 00:54 Source: patient Mode of arrival: ambulatory Limitations: no limitations History of Present Illness: 71-year-old female states she has had a cough that has been constant for the last month to 7 weeks. She states she has seen her PCP for she is unsure what is causing the cough she states she is having some back spasms now from coughing. She denies any fever she denies any dyspnea her pulse ox here is normal. She is on lisinopril she is unsure how long she has been taking it. She denies any abdominal pain or vomiting. Associated symptoms: Deny abdominal pain, chills, dysuria, fever(s), nausea or vomiting Review of Systems Const: Denies: fever(s), chills, body aches or change in appetite Eyes: Denies: blurry vision or eye discomfort ENMT: Denies: throat pain or dental pain Card: Denies: chest pain Resp: Reports: non-productive cough GI: Denies: abdominal pain, nausea, vomiting or diarrhea : Denies: dysuria Musc: Reports: back pain Skin/Breast: Denies: rash Neuro: Denies: headache(s) Psych: Denies: depression Braulio/Lymph: Denies: easy bruising All/Imm: Denies: urticaria PFSH ED PFSH: Medical History Acute bronchitis and bronchiolitis Diabetes mellitus, type II Hepatitis A History of colon polyps Obstructive sleep apnea on CPAP Surgical History History of cataract surgery History of hysterectomy Hx of breast reduction, elective Hx of cholecystectomy Hx of colonoscopy Family History Sister Cancer Mother Brain mass . Father Cirrhosis of liver, Onset Age: 50 . Social History Smoking and tobacco status: former smoker Alcohol intake: never Adopted: No Caregiver/support person: No Lives independently: No Household members: spouse Housing: House Marital status: Number of children: 2 Number of grandchildren: 2 Highest education level completed: High School Graduate Current occupational exposures/hazards: No Current gender identity: Female Female Reproductive History: Spontaneous abortions: No Physical Exam Const: COMMON NORMALS: no acute distress, patient oriented x3 and healthy appearing HENMT: COMMON NORMALS: normocephalic and atraumatic HEAD & SCALP: normocephalic and atraumatic Eye: COMMON NORMALS: Equal, round and reactive pupils present and EOMs intact bilaterally PUPIL: Yes Equal, round and reactive pupils present Neck/C-Spine: COMMON NORMALS: full ROM and supple Chest: COMMONS NORMALS: normal inspection of the chest and normal palpation of entire chest wall Resp: COMMON NORMALS: normal respiratory effort, No retractions, No use of accessory muscles and clear to auscultation bilaterally AUSCULTATION: clear to auscultation bilaterally Cardio: COMMON NORMALS: regular rate, regular rhythm and No murmurs present (Cardio) RATE: regular rate RHYTHM: regular rhythm GI: COMMON NORMALS: Normal to inspection, nondistended, normoactive bowel sounds present, Soft to palpation, non-tender and no masses PALPATION: Yes Soft to palpation Extremity: COMMON NORMALS: normal to inspection and full ROM Neuro: COMMON NORMALS: patient oriented x3, moves all extremities and no focal motor deficits Psych: COMMON NORMALS: mental status grossly normal, Normal thought process present and cooperative THOUGHT PROCESS: Normal thought process present Skin: COMMON NORMALS: no rashes or lesions noted and no wounds GENERAL SKIN EXAM: no rashes or lesions noted Course Vital Signs: Vital signs: Vital Signs Pulse Rate 86 04/23/22 01:29 Respiratory Rate 18 04/23/22 01:29 Blood Pressure 133/80 04/23/22 01:29 Pulse Oximetry 97 04/23/22 01:29 Oxygen Delivery Me thod 04/23/22 01:29 MDM - Back Pain/Injury Medical Decision Making Patient presents here with cough its been chronic in nature she is on lisinopril this could be causing her cough x-ray and blood work are normal we will stop her lisinopril start her on metoprolol have her follow-up with her PCP she return if worsening. Labs 04/23/22 01:15 04/23/22 01:15 Laboratory Results WBC 8.2 10^3/uL (4.0-10.0) 04/23/22 01:15 RBC 4.58 10^6/uL (4.1-5.3) 04/23/22 01:15 Hgb 13.2 g/dL (11.5-15.3) 04/23/22 01:15 Hct 40.9 % (37.0-47.0) 04/23/22 01:15 MCV 89.3 fl (81-99) 04/23/22 01:15 MCH 28.8 pg (28.0-34.0) 04/23/22 01:15 MCHC 32.3 g/dL (30.0-36.0) 04/23/22 01:15 RDW 12.5 % (12.1-15.1) 04/23/22 01:15 Plt Count 262 10^3/cmm (130-400) 04/23/22 01:15 MPV 10.1 fL (7.4-10.4) 04/23/22 01:15 Neut % (Auto) 44.2 % 04/23/22 01:15 Lymph % (Auto) 45.6 % 04/23/22 01:15 Owen % (Auto) 7.9 % 04/23/22 01:15 Eos % (Auto) 1.7 % 04/23/22 01:15 Baso % (Auto) 0.5 % 04/23/22 01:15 Neut # (Auto) 3.64 10^3/uL (1.8-7.7) 04/23/22 01:15 Lymph # (Auto) 3.8 10^3/uL (0.8-4.8) 04/23/22 01:15 Owen # (Auto) 0.7 10^3/uL (0.2-0.9) 04/23/22 01:15 Eos # (Auto) 0.1 10^3/uL (0.0-0.8) 04/23/22 01:15 Baso # (Auto) 0.0 10^3/uL (0.0-0.1) 04/23/22 01:15 Nucleated RBC % (auto) 0 % 04/23/22 01:15 Nucleated RBCs # 0.0 /100WBC 04/23/22 01:15 Sodium 139 mmol/L (136-145) 04/23/22 01:15 Potassium 3.9 mmol/L (3.5-5.1) 04/23/22 01:15 Chloride 104 mmol/L (98-107) 04/23/22 01:15 Carbon Dioxide 25 mmol/L (22-29) 04/23/22 01:15 Anion Gap 13.9 (5-19) 04/23/22 01:15 BUN 12 mg/dL (8-23) 04/23/22 01:15 Creatinine 0.5 mg/dL (0.5-0.9) 04/23/22 01:15 GFR Calculation Not Reportable 04/23/22 01:15 Calculated Osmolality 291 mOsm/kg (285-295) 04/23/22 01:15 Calcium 8.9 mg/dL (8.5-10.5) 04/23/22 01:15 Total Bilirubin 0.3 mg/dL (0.15-1.2) 04/23/22 01:15 AST 16 U/L (0-32) 04/23/22 01:15 ALT 11 U/L (0-33) 04/23/22 01:15 Alkaline Phosphatase 55 U/L (35-105) 04/23/22 01:15 Albumin 4.3 g/dL (3.5-5.2) 04/23/22 01:15 Globulin 2.2 g/dL (1.3-4.6) 04/23/22 01:15 Discharge Plan Discharge Patient Disposition: Home Clinical Impression: Cough Condition: Stable Prescriptions: New metoprolol succinate 25 mg tablet extended release 24 hr 25 mg PO DAILY Qty: 30 0RF Discontinued lisinopril 5 mg tablet 5 mg PO DAILY Qty: 90 1RF No Action albuterol sulfate 90 mcg/actuation HFA aerosol inhaler 1 inh inhalation QID PRN (Reason: shortness of breath or wheezing) Qty: 8.5 1RF (DME) Diabetic Shoes with 3 pairs of Inserts See Rx Instructions .Route .MEDSUPPLY Qty: 1 0RF Rx Instructions: As directed by HOME (DME) diabetic shoes See Rx Instructions .Route .MEDSUPPLY Qty: 1 1RF Rx Instructions: Please issue Diabetic shoes. Foot Exam performed on 12/24/21. azithromycin 250 mg tablet See Rx Instructions PO .COMPLEX Qty: 6 0RF Rx Instructions: For 250 mg dose pack: take 500 mg today (day 1), then 250 mg for 4 days (days 2-5) PO benzonatate 200 mg capsule 200 mg PO TID PRN (Reason: cough) Qty: 20 0RF atorvastatin 10 mg tablet See Rx Instructions .ROUTE .COMPLEX Qty: 90 3RF Dose Instruction: TAKE 1 TABLET EVERY DAY FOR HYPERLIPIDEMIA Rx Instructions: TAKE 1 TABLET EVERY DAY FOR HYPERLIPIDEMIA fluoxetine 40 mg capsule See Rx Instructions .ROUTE .COMPLEX Qty: 90 3RF Dose Instruction: TAKE 1 CAPSULE EVERY DAY FOR DEPRESSION Rx Instructions: TAKE 1 CAPSULE EVERY DAY FOR DEPRESSION multivitamin [Multiple Vitamins] Tablet 1 tab PO DAILY fluticasone propionate [Flonase Allergy Relief] 50 mcg/actuation [place],Suspension 2 spray INTRANASAL DAILY PRN (Reason: Congestion) cholecalciferol (vitamin D3) [Vitamin D3] 25 mcg (1,000 unit) Tablet 25 mcg PO DAILY glimepiride 2 mg tablet 4 mg PO BID omeprazole 20 mg capsule,delayed release(DR/EC) 20 mg PO DAILY Rx Instructions: TAKE 1 CAPSULE EVERY DAY FOR GERD Expectorant DM 20-300 mg/5 mL liquid 5 ml PO Q4H PRN (Reason: cough) Rx Instructions: Can substitute to dose available Prolia 60 mg/mL syringe 60 mg SUBCUT .[id number] Discharge Orders: Discharge ED (Routine); Ordered 04/23/22 Ordered By: Sampson Sanz Referrals: Siddharth Cunningham DO [Primary Care Provider] - 1-3 days Discharge Diet: Advance as tolerated Discharge Activity: Resume usual activity Patient Instructions: Acute Cough (ED) Activity Restrictions/Additional Instructions: stop lisinopril Coding Level of Care Code ED 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
[2022-04-23 01:21] LABS: Basophils % 0.5 %; Eosinophils # 0.1 10^3/uL (0.0-0.8); Eosinophils % 1.7 %; Hematocrit 40.9 % (37.0-47.0); Hemoglobin 13.2 g/dL (11.5-15.3); Lymphocytes # 3.8 10^3/uL (0.8-4.8); Lymphocytes % 45.6 %; Mean Corpuscular HGB Conc 32.3 g/dL (30.0-36.0); Mean Corpuscular Hemoglobin 28.8 pg (28.0-34.0); Mean Corpuscular Volume 89.3 fl (81-99); Mean Platelet Volume 10.1 fL (7.4-10.4); Monocytes # 0.7 10^3/uL (0.2-0.9); Monocytes % 7.9 %; Neutrophils # 3.64 10^3/uL (1.8-7.7); Neutrophils % 44.2 %; Nucleated Red Blood Cells % 0 %; Platelet Count 262 10^3/cmm (130-400); Red Blood Count 4.58 10^6/uL (4.1-5.3); Red Cell Distribution Width 12.5 % (12.1-15.1); White Blood Count 8.2 10^3/uL (4.0-10.0)
[2022-04-23] MEDS: albuterol 2.5 mg/3 mL Neb INHALATION (01:23)
[2022-04-23 01:25] VITALS: PULSE 89; RESP 20; O2SAT 99
[2022-04-23 01:29] VITALS: BP 133/80; PULSE 86; RESP 18; O2SAT 97
[2022-04-23 01:45] LABS: Alanine Aminotransferase 11 U/L (0-33); Albumin Level 4.3 g/dL (3.5-5.2); Alkaline Phosphatase 55 U/L (35-105); Anion Gap 13.9 (5-19); Aspartate Amino Transferase 16 U/L (0-32); Blood Urea Nitrogen 12 mg/dL (8-23); Calcium 8.9 mg/dL (8.5-10.5); Carbon Dioxide 25 mmol/L (22-29); Chloride 104 mmol/L (98-107); Creatinine Clr Calc Pharmacy 63.4198; Globulin 2.2 g/dL (1.3-4.6); Glucose 159 mg/dL (65-115); Osmolality Calculated 291 mOsm/kg (285-295); Potassium 3.9 mmol/L (3.5-5.1); Sodium 139 mmol/L (136-145); Total Bilirubin 0.3 mg/dL (0.15-1.2); Total Protein 6.5 g/dL (6.6-8.7)
[2022-04-23 01:56] VITALS: BP 140/74; PULSE 78; RESP 18; TEMP 36.8; O2SAT 94
== END 2022-04-23 01:57 | disposition home or self-care (01) ==
PROVIDERS: Emergency Provider Emergency Medicine; PCP Family Medicine
DX: R05.9 Cough, unspecified (principal); Z79.84 Long term (current) use of oral hypoglycemic drugs; Z87.891 Personal history of nicotine dependence; E11.42 Type 2 diabetes mellitus with diabetic polyneuropathy; L60.3 Nail dystrophy; L84 Corns and callosities; M20.41 Other hammer toe(s) (acquired), right foot; M20.42 Other hammer toe(s) (acquired), left foot
CPT/HCPCS: 71045; 80053; 85025; 94640; 99214; 99284; J7613

== ENCOUNTER → 2022-06-25 09:46 | Outpatient (BNVA) | payer MEDICARE, SELFPAY | PROVIDERS: PCP Family Medicine; Visit Provider Family Medicine | DX: E11.9 Type 2 diabetes mellitus without complications (principal); R68.2 Dry mouth, unspecified; H04.123 Dry eye syndrome of bilateral lacrimal glands; I10 Essential (primary) hypertension; E78.2 Mixed hyperlipidemia | CPT/HCPCS: 80048; 83036; 85027; 85651; 86038; 86140 ==

== ENCOUNTER → 2022-08-29 09:23 | Outpatient (BNVA) | payer MEDICARE, SELFPAY | PROVIDERS: PCP Family Medicine; Visit Provider Podiatrist Foot & Ankle Surgery | DX: E11.8 Type 2 diabetes mellitus with unspecified complications (principal); E11.42 Type 2 diabetes mellitus with diabetic polyneuropathy; L60.3 Nail dystrophy; L84 Corns and callosities; M20.41 Other hammer toe(s) (acquired), right foot; M20.42 Other hammer toe(s) (acquired), left foot | CPT/HCPCS: 11721 ==

== ENCOUNTER → 2022-10-08 14:43 | Outpatient (BNVA) | payer MEDICARE, SELFPAY | PROVIDERS: PCP Family Medicine; Visit Provider Family Medicine | DX: E11.29 Type 2 diabetes mellitus with other diabetic kidney complication (principal); E83.42 Hypomagnesemia; I10 Essential (primary) hypertension; R80.9 Proteinuria, unspecified; E83.52 Hypercalcemia | CPT/HCPCS: 80053; 81000; 82043; 82306; 83036; 83735 ==

== ENCOUNTER 2022-10-18 10:23 | Outpatient (CLI) | payer MEDICARE, SELFPAY ==
[2022-10-22 14:50] LABS: Anti-Nuclear Antibody Screen NEGATIVE (NEGATIVE)
[2022-10-22 15:40] LABS: SS A Ro Sjogrens Antibody <1.0 NEG AI (<1.0 NEG); SS-B/LA IGG <1.0 NEG AI (<1.0 NEG)
== END 2022-10-18 10:24 | disposition home or self-care (01) ==
PROVIDERS: PCP Family Medicine; Visit Provider Student in an Organized Health Care Education/Training Program
DX: Z01.89 Encounter for other specified special examinations (principal)
CPT/HCPCS: 36415; 86038; 86235

== ENCOUNTER → 2022-11-13 08:49 | Outpatient (BNVA) | payer MEDICARE, SELFPAY | PROVIDERS: PCP Family Medicine; Visit Provider Family Medicine | DX: R53.81 Other malaise (principal); J06.9 Acute upper respiratory infection, unspecified; B96.89 Other specified bacterial agents as the cause of diseases classified elsewhere; R11.0 Nausea; R68.89 Other general symptoms and signs; Z20.822 Contact with and (suspected) exposure to COVID-19 | CPT/HCPCS: 82962; 87426 ==

== ENCOUNTER 2023-03-07 08:12 | Outpatient (CLI) | payer MEDICARE, SELFPAY ==
--- NOTE | 2023-03-07 08:28 | MM_ITS ---
WS: [id number] BILATERAL SCREENING DIGITAL TOMOSYNTHESIS MAMMOGRAM WITH CAD HISTORY: SCREENING COMPARISON: 05/30/2021, 02/09/2020 Bilateral CC and MLO views with tomosynthesis and synthetic mammography submitted. Computer aided det ection analyzed. Breast composition: There are scattered areas of fibroglandular density. No suspicious masses, microc alcifications or architectural distortion. Benign calcifications in each breast. IMPRESSION: MM/[place] [id number] BI-RADS: 2-Benign FOLLOW UP: 1 Year Follow-up
== END 2023-03-07 08:13 | disposition home or self-care (01) ==
LOC: RAD 08:12
PROVIDERS: PCP Family Medicine; Visit Provider Family Medicine
DX: Z12.31 Encounter for screening mammogram for malignant neoplasm of breast (principal); R92.323 Mammographic fibroglandular density, bilateral breasts; R92.1 Mammographic calcification found on diagnostic imaging of breast
CPT/HCPCS: 77063; 77067

== ENCOUNTER → 2023-06-04 13:02 | Outpatient (BNVA) | payer MEDICARE, SELFPAY | PROVIDERS: PCP Family Medicine; Visit Provider Family Medicine | DX: I10 Essential (primary) hypertension (principal); E78.2 Mixed hyperlipidemia; E11.9 Type 2 diabetes mellitus without complications; E55.9 Vitamin D deficiency, unspecified | CPT/HCPCS: 85025 ==

== ENCOUNTER → 2023-06-05 08:13 | Outpatient (BNVA) | payer MEDICARE, SELFPAY | PROVIDERS: PCP Family Medicine; Visit Provider Family Medicine | DX: E11.9 Type 2 diabetes mellitus without complications (principal); I10 Essential (primary) hypertension; E78.2 Mixed hyperlipidemia | CPT/HCPCS: 80053; 80061; 82306; 83036; 84443; 85025 ==

== ENCOUNTER → 2023-10-24 09:20 | Outpatient (BNVA) | payer MEDICARE, SELFPAY | PROVIDERS: PCP Family Medicine; Visit Provider Family Medicine | DX: E55.9 Vitamin D deficiency, unspecified (principal); E11.9 Type 2 diabetes mellitus without complications; M81.0 Age-related osteoporosis without current pathological fracture | CPT/HCPCS: 82043; 82306; 83036 ==

== ENCOUNTER 2024-04-14 10:17 | Outpatient (CLI) | payer MEDICARE, SELFPAY ==
--- NOTE | 2024-04-14 10:29 | MM_ITS ---
WS: [id number] BILATERAL SCREENING DIGITAL TOMOSYNTHESIS MAMMOGRAM WITH CAD HISTORY: SCREENING COMPARISON: 03/07/2023, 05/30/2021, 09/10/2017 Bilateral CC and MLO views with tomosynthesis and synthetic mammography submitted. Computer aided detection analyzed. Breast composition: There are scattered areas of fibroglandular density. No suspicious masses, microcalcifications or architectural distortion. Scattered benign calcifications in each breast. Asymmetries are stable also. MM/MM scr tomosynthesis [id number] IMPRESSION: BI-RADS: 2 - Benign. FOLLOW UP: 1 Year Follow-up
== END 2024-04-14 10:18 | disposition home or self-care (01) ==
LOC: RAD 10:21
PROVIDERS: PCP Family Medicine; Visit Provider Family Medicine
DX: Z12.31 Encounter for screening mammogram for malignant neoplasm of breast (principal); R92.323 Mammographic fibroglandular density, bilateral breasts; R92.1 Mammographic calcification found on diagnostic imaging of breast; N64.89 Other specified disorders of breast
CPT/HCPCS: 77063; 77067

== ENCOUNTER → 2024-05-07 08:18 | Outpatient (BNVA) | payer MEDICARE, SELFPAY | PROVIDERS: PCP Family Medicine; Visit Provider Family Medicine | DX: E11.9 Type 2 diabetes mellitus without complications (principal); E78.2 Mixed hyperlipidemia; I10 Essential (primary) hypertension; E55.9 Vitamin D deficiency, unspecified; K21.9 Gastro-esophageal reflux disease without esophagitis; M81.0 Age-related osteoporosis without current pathological fracture | CPT/HCPCS: 80053; 80061; 82306; 83036; 84439; 84443; 85025 ==

== ENCOUNTER 2024-06-30 21:05 | Emergency (ER) | payer MEDICARE, SELFPAY ==
[2024-06-30 21:11] VITALS: BP 163/67; PULSE 91; RESP 16; TEMP 36.6; O2SAT 91; BMI 27.4
--- NOTE | 2024-06-30 21:18 | CTR_ITS ---
PROCEDURE INFORMATION: Exam: CT Head Without Contrast Exam date and time: 06/30/2024 9:26 PM Age: 74 years old Clinical indication: Injury or trauma; Fall; Concussion/head injury; Consciousness not specified; Additional info: Fall, head injury TECHNIQUE: Imaging protocol: Computed tomography of the head without contrast. Radiation optimization: All CT scans at this facility use at least one of these dose optimization techniques: automated exposure control; mA and/or kV adjustment per patient size (includes targeted exams where dose is matched to clinical indication); or iterative reconstruction. COMPARISON: CT head wo con* [id number] 10/12/2021 6:49 AM RADIATION DOSE METRICS: Total DLP (mGy-cm): 1264.4 FINDINGS: Brain: Again noted encephalomalacia and gliosis left anterior frontal lobe consistent with old infarction.There is mild periventricular white matter disease, nonspecific, most likely representing microvascular disease, although other etiologies are not excluded. No acute process, mass, or bleed. Cerebral ventricles: No ventriculomegaly. Paranasal sinuses: Visualized sinuses are unremarkable. No fluid levels. Mastoid air cells: Visualized mastoid air cells are well aerated. Orbital cavities: There are bilateral lens implants. Bones: Unremarkable. No acute fracture. Soft tissues: Unremarkable. CT/CT head wo con* [id number] IMPRESSION: 1. No intracranial bleed or depressed calvarial fracture identified. 2. 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 3. Diffuse age-related atrophy and small vessel ischemic change.
--- NOTE | 2024-06-30 21:18 | CTR_ITS ---
PROCEDURE INFORMATION: Exam: CT Cervical Spine Without Contrast Exam date and time: 06/30/2024 9:26 PM Age: 74 years old Clinical indication: Injury or trauma; Fall; Concussion/head injury; Additional info: Fall, neck pain TECHNIQUE: Imaging protocol: Computed tomography of the cervical spine without contrast. Radiation optimization: All CT scans at this facility use at least one of these dose optimization techniques: automated exposure control; mA and/or kV adjustment per patient size (includes targeted exams where dose is matched to clinical indication); or iterative reconstruction. COMPARISON: CT cervical spin wo con* [id number] 10/12/2021 6:49 AM RADIATION DOSE METRICS: Total DLP (mGy-cm): 277.2 FINDINGS: Bones: There is diffuse osteopenia which somewhat limits bony assessment. Vertebral bodies normal in height and alignment. No significant bony canal or foraminal stenosis. No radiographic evidence of disc herniation. Lungs: Biapical nodular infiltrates. Soft tissues: Unremarkable. CT/CT cervical spin wo con* [id number] IMPRESSION: 1. No acute fracture. 2. Biapical infiltrates suspicious for pneumonia depending on clinical context.
--- NOTE | 2024-06-30 21:41 | W.ED.FALL ---
HPI - Fall General: Chief Complaint: Fall Stated Complaint: fall hit head lac Time Seen by Provider: 06/30/24 21:37 History of Present Illness: 74-year-old female with a history of hypertension, hyperlipidemia, COPD and diabetes who presents emergency room after having a fall striking her head. She thinks he may have lost consciousness. She tripped over her chair. No nausea or vomiting. No altered mental status. Small contusion on the back of the head with some bleeding. No anticoagulation. She has some soreness in her neck and shoulders from the fall. No bony tenderness. Still has good range of motion of her arms. Related Data Home Medications ?Medication ?Instructions ?Recorded ?Confirmed fluticasone propionate 50 2 spray intranasal DAILY PRN 11/06/19 06/25/24 mcg/actuation nasal Congestion spray,suspension (Flonase Allergy Relief) multivitamin (Multiple Vitamins 1 tab PO DAILY 11/06/19 06/25/24 tablet) Previous Rx's ?Medication ?Instructions ?Recorded blood sugar diagnostic (True #100 strips 09/27/22 Metrix Glucose Test Strip) lancets 33 gauge (TRUEplus Lancets) #100 ea 09/27/22 albuterol sulfate 90 mcg/actuation 1 inh inhalation QID PRN shortness 09/23/23 aerosol inhaler of breath or wheezing #8.5 grams atorvastatin 10 mg tablet See Rx Instructions .Route 09/23/23 .COMPLEX #90 tabs cholecalciferol (vitamin D3) 25 25 mcg PO DAILY #90 caps 09/23/23 mcg (1,000 unit) capsule fluoxetine 40 mg capsule See Rx Instructions .Route 09/23/23 .COMPLEX #90 caps omeprazole 20 mg capsule,delayed 20 mg PO DAILY #90 caps 09/23/23 release glimepiride 4 mg tablet 4 mg PO DAILY #90 tabs 10/24/23 amlodipine 5 mg tablet 5 mg PO DAILY #90 tabs 05/27/24 azithromycin 250 mg tablet See Rx Instructions PO .COMPLEX #6 06/30/24 (Zithromax Z-Aric) tabs Allergies Allergy/AdvReac Type Severity Reaction Status Date / Time No Known Allergies Allergy Verified 06/30/24 21:15 Review of Systems Narrative: Constitutional symptoms: Negative except as documented in HPI. Skin symptoms: Negative except as documented in HPI. Eye symptoms: Negative except as documented in HPI. ENMT symptoms: Negative except as documented in HPI. Respiratory symptoms: Negative except as documented in HPI. Cardiovascular symptoms: Negative except as documented in HPI. Gastrointestinal symptoms: Negative except as documented in HPI. Genitourinary symptoms: Negative except as documented in HPI. Musculoskeletal symptoms: Negative except as documented in HPI. Neurologic symptoms: Negative except as documented in HPI. Psychiatric symptoms: Negative except as documented in HPI. Endocrine symptoms: Negative except as documented in HPI. PFSH ED PFSH: Medical History Anxiety and depression GERD without esophagitis Hypovitaminosis D Essential hypertension History of colon polyps Obstructive sleep apnea on CPAP she has quit CPAP b/c she can't tolerate it Diabetes mellitus, type II Surgical History History of hysterectomy hyst w/ BSO done for cysts; no cancer Hx of breast reduction, elective History of cataract surgery Hx of colonoscopy 1.4.23 normal Hx of cholecystectomy Family History Sister Lymphoma Hodgkins Mother Brain mass . Father Cirrhosis of liver, Onset Age: 50 . 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 Skin: Warm, dry. Head: Normocephalic, atraumatic. Neck: Supple, trachea midline. Eye: Extraocular movements are intact. Ears, nose, mouth and throat: mucosa moist. Cardiovascular: Regular, Normal peripheral perfusion. Respiratory: Lungs are clear to auscultation, respirations are non-labored, breath sounds are equal, Symmetrical chest wall expansion. Gastrointestinal: Soft, Nontender, Non distended Musculoskeletal: Normal ROM, no deformity. Neurological: Alert and oriented, No focal neurological deficit observed. Psychiatric: Cooperative, appropriate mood & affect. Course Vital Signs: Vital signs: Vital Signs Temperature 97.8 F 06/30/24 21:11 Pulse Rate 91 06/30/24 21:11 Respiratory Rate 16 06/30/24 21:11 Blood Pressure 163/67 06/30/24 21:11 Pulse Oximetry 91 06/30/24 21:11 Oxygen Delivery Me thod Room Air 06/30/24 21:11 MDM - Fall Medical Decision Making Medical decision making: Differential diagnosis including but not limited to and based on the above HPI, review of systems and physical exam: patient with fall and head injury with neck pain. Subdural hematoma, subarachnoid hemorrhage, concussion, skull fracture. Also concern for cervical fracture versus cervical strain. Orders placed to evaluate differential diagnosis based on the above differential, HPI and physical exam CT scan of the head and neck were ordered. CT head: No acute intracranial process. no intracranial hemorrhage, no evidence of infarct. no evidence of acute fracture.This was reviewed and interpreted by myself the ER physician. Encephalomalacia from old stroke. Senescent changes. CT of the cervical spine: No fracture. Good alignment. No step-offs. This was reviewed and interpreted by myself the emergency room physician. I also reviewed the radiologist report. There is report of some bilateral infiltrates in the lungs that might be suspicious for pneumonia. I spoke with the patient about this she has had a cough for several months but no fevers or chest pain. She declines a chest x-ray at this point but does agree to a Z-Aric and she will follow with her primary care provider Assessment and plan: Fall Head injury Scalp laceration ? Life-saving tetanus given in the emergency room. - Discharged home - Discussed plan with patient. Answered any questions. - Evaluation and treatment of this problem were appropriate in the emergency setting. Lab Data Radiology Impressions Cervical Spine CT 06/30/24 21:18 IMPRESSION: 1. No acute fracture. 2. Biapical infiltrates suspicious for pneumonia depending on clinical context. Head CT 06/30/24 21:18 IMPRESSION: 1. No intracranial bleed or depressed calvarial fracture identified. 2. 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 3. Diffuse age-related atrophy and small vessel ischemic change. All radiology interpretation(s) finalized by discharge Discharge Plan Discharge Patient Disposition: Home Clinical Impression: Fall, Head injury, Abrasion of scalp Condition: Stable Prescriptions: New azithromycin [Zithromax Z-Aric] 250 mg tablet See Rx Instructions .ROUTE .COMPLEX Qty: 6 0RF Rx Instructions: For 250 mg dose pack: take 500 mg today (day 1), then 250 mg for 4 days (days 2-5) No Action atorvastatin 10 mg tablet See Rx Instructions .ROUTE .COMPLEX Qty: 90 3RF Dose Instruction: TAKE 1 TABLET EVERY DAY FOR HYPERLIPIDEMIA Rx Instructions: TAKE 1 TABLET EVERY DAY FOR HYPERLIPIDEMIA albuterol sulfate 90 mcg/actuation HFA aerosol inhaler 1 inh inhalation QID PRN (Reason: shortness of breath or wheezing) Qty: 8.5 2RF cholecalciferol (vitamin D3) 25 mcg (1,000 unit) capsule 25 mcg PO DAILY Qty: 90 1RF fluoxetine 40 mg capsule See Rx Instructions .ROUTE .COMPLEX Qty: 90 3RF Dose Instruction: TAKE 1 CAPSULE EVERY DAY FOR DEPRESSION Rx Instructions: TAKE 1 CAPSULE EVERY DAY FOR DEPRESSION omeprazole 20 mg capsule,delayed release(DR/EC) 20 mg PO DAILY Qty: 90 3RF Rx Instructions: TAKE 1 CAPSULE EVERY DAY FOR GERD glimepiride 4 mg tablet 4 mg PO DAILY Qty: 90 3RF Rx Instructions: take with first meal of the day (DME) True Metrix Glucose Test Strip Strip See Rx Instructions .ROUTE .COMPLEX Qty: 100 11RF Dose Instruction: TEST BLOOD SUGAR ONE TIME DAILY FOR DIABETES Rx Instructions: TEST BLOOD SUGAR ONE TIME DAILY FOR DIABETES (DME) lancets [TRUEplus Lancets] 33 gauge misc See Rx Instructions .ROUTE .COMPLEX Qty: 100 11RF Dose Instruction: TEST BLOOD SUGAR ONE TIME DAILY FOR DIABETES Rx Instructions: TEST BLOOD SUGAR ONE TIME DAILY FOR DIABETES amlodipine 5 mg tablet 5 mg PO DAILY Qty: 90 3RF multivitamin [Multiple Vitamins] Tablet 1 tab PO DAILY fluticasone propionate [Flonase Allergy Relief] 50 mcg/actuation [place],Suspension 2 spray INTRANASAL DAILY PRN (Reason: Congestion) Discharge Orders: Discharge ED (Routine); Ordered 06/30/24 Ordered By: Trisha Martinez Referrals: Ambreen Rodriguez MD [Primary Care Provider, Family Practice] Discharge Diet: Usual diet Discharge Activity: Increase activity as tolerated Patient Instructions: Fall Prevention for Older Adults (ED), Opioid Safety, Pain Management Activity Restrictions/Additional Instructions: Thank you for choosing [facility] for your healthcare needs today. You have been screened and evaluated and felt safe for discharge. Health conditions do change or evolve sometimes and as such it is important that you follow up with your Primary Doctor to be re checked, 3-5 days is a general good time frame for follow up. You are always welcome to return to the ED for re assessment if your symptoms are worsening or you have new concerns Print Language: Korean Coding Level of Care Code ED Internet Project Manager for Koby Tavarez
[2024-06-30] MEDS: tetanus-dipt-pertussis 0.5 mL SDV IM (22:24)
== END 2024-06-30 22:36 | disposition home or self-care (01) ==
PROVIDERS: Emergency Provider Emergency Medicine; PCP Family Medicine
DX: S00.01XA Abrasion of scalp, initial encounter (principal); S09.8XXA Other specified injuries of head, initial encounter; W19.XXXA Unspecified fall, initial encounter; I10 Essential (primary) hypertension; E11.9 Type 2 diabetes mellitus without complications; J44.9 Chronic obstructive pulmonary disease, unspecified; E78.5 Hyperlipidemia, unspecified
CPT/HCPCS: 70450; 72125; 90715; 99284

== ENCOUNTER 2024-07-08 08:45 | Emergency (ER) | payer MEDICARE, SELFPAY ==
--- NOTE | 2024-07-08 08:48 | XR_ITS ---
WS: [id number] Portable AP upright chest, 07/08/2024 Clinical Data: dyspnea/cough Comparison: Portable chest, 04/23/2022 Findings: No nodules, masses or effusions are seen. The heart is normal. The pulmonary vascularity is not increased. No pneumonia or pneumothorax is seen. The aortic arch shows calcification and tortuosity. XR/XR chest 1V portable [id number] Impression: Atherosclerosis.
--- NOTE | 2024-07-08 08:48 | ECG_ITS ---
[facility] Date: 2024-07-08 Pat Name: Preeti Saunders Department: Room: Gender: Female Rental Manager: : 1950 Requested By: Nabeel Dover Order Number: [id number] Manolo MD: Kristy Moy M.D. Measurements Intervals [place] Rate: 94 P: -2 UT: 140 QRS: -69 QRSD: 85 T: 59 QT: 348 QTc: 436 Interpretive Statements SINUS RHYTHM LEFT AXIS DEVIATION [QRS AXIS < -30] LOW QRS VOLTAGE IN PRECORDIAL LEADS [QRS DEFLECTION < 1.0 mV IN CHEST LEADS] PATTERN CONSISTENT WITH PULMONARY DISEASE Compared to ECG 11/06/2019 11:59:00 Left-axis deviation now present Low QRS voltage now present Electronically Signed On 07-08-2024 18:04:00 CDT by Kristy Moy M.D. [email or web address]
[2024-07-08 09:02] VITALS: BP 132/73; PULSE 95; RESP 17; TEMP 36.9; O2SAT 94; BMI 27.4
[2024-07-08 09:50] LABS: Basophils % 0.4 %; Eosinophils # 0.1 10^3/uL (0.0-0.8); Eosinophils % 1.1 %; Hematocrit 42.1 % (36-47); Lymphocytes # 1.9 10^3/uL (0.8-4.8); Lymphocytes % 25.1 %; Mean Corpuscular Hemoglobin 29.4 pg (27-33); Mean Corpuscular Volume 89.2 fl (85-98); Mean Platelet Volume 10.4 fL (7.4-10.4); Monocytes # 0.8 10^3/uL (0.2-0.9); Monocytes % 10.2 %; Neutrophils # 4.74 10^3/uL (1.8-7.7); Neutrophils % 62.9 %; Nucleated Red Blood Cells % 0 %; Platelet Count 228 10^3/cmm (157-399); Red Blood Count 4.72 10^6/uL (3.85-5.65); Red Cell Distribution Width 12.6 % (12.1-15.1); White Blood Count 7.53 10^3/uL (3.29-11.43)
[2024-07-08 10:06] LABS: Alanine Aminotransferase 20 U/L (0-33); Albumin Level 4.4 g/dL (3.5-5.2); Alkaline Phosphatase 87 U/L (35-105); Anion Gap 14.9 (5-19); Aspartate Amino Transferase 27 U/L (0-32); Blood Urea Nitrogen 15 mg/dL (8-23); Calcium 9.2 mg/dL (8.5-10.5); Carbon Dioxide 25 mmol/L (22-29); Chloride 103 mmol/L (98-107); Creatinine Clr Calc Pharmacy 60.2393; Globulin 2.7 g/dL (1.3-4.6); Glucose 114 mg/dL (65-115); Osmolality Calculated 290 mOsm/kg (285-295); Potassium 3.9 mmol/L (3.5-5.1); Sodium 139 mmol/L (136-145); Total Bilirubin 0.5 mg/dL (0.15-1.2); Total Protein 7.1 g/dL (6.6-8.7)
[2024-07-08 11:02] VITALS: BP 167/76; PULSE 83; RESP 18; O2SAT 96
--- NOTE | 2024-07-08 11:05 | ED_ITS ---
HPI - SOB/Dyspnea 2 General: Chief Complaint: Shortness of Breath/Dyspnea Stated Complaint: sob & weak Time Seen by Provider: 07/08/24 08:48 History of Present Illness: HPI Narrative: 74-year-old female with a history of hyp ertension, hyperlipidemia, COPD and diabetes who presents emergency with a cough and says she is not feeling well. Says she has some pleuritic chest pain and she coughs all the time. She was given a Z-Aric recently which did not help. Vitals are normal. No altered mental status. She says she went to see her primary care this morning and they told her to come to the emergency room. Her has also checked into the emergency room. Related Data Home Medications ?Medication ?Instructions ?Recorded ?Confirmed fluticasone propionate 50 2 spray intranasal DAILY PRN 11/06/19 07/05/24 mcg/actuation nasal Congestion spray,suspension (Flonase Allergy Relief) multivitamin (Multiple Vitamins 1 tab PO DAILY 0 07/05/24 tablet) Previous Rx's ?Medication ?Instructions ?Recorded blood sugar diagnostic (True #100 strips 09/27/22 Metrix Glucose Test Strip) lancets 33 gauge (TRUEplus Lancets) #100 ea 09/27/22 albuterol sulfate 90 mcg/actuation 1 inh inhalation QI D PRN shortness 09/23/23 aerosol inhaler of breath or wheezing #8.5 g freedom atorvastatin 10 mg tablet See Rx Instructions .Route 0 09/23/23 .COMPLEX #90 tabs cholecalciferol (vitamin D3) 25 25 mcg PO DAILY #90 ca ps 09/23/23 mcg (1,000 unit) capsule fluoxetine 40 mg capsule See Rx Instructions .Route 0 09/23/23 .COMPLEX #90 caps omeprazole 20 mg capsule,delayed 20 mg PO DAILY #90 ca ps 09/23/23 release glimepiride 4 mg tablet 4 mg PO DAILY #90 tabs 10/23 amlodipine 5 mg tablet 5 mg PO DAILY #90 tabs 05/27 doxycycline monohydrate 100 mg 100 mg PO BID 10 days # 20 caps 07/08/24 capsule prednisone 20 mg tablet 60 mg (3 x 20 mg) PO DAILY 5 days 07/08/24 #15 tabs Allergies Allergy/AdvReac Type Severity Reaction Status Date / Time No Known Allergies Allergy Verified 07/05/24 08:12 Review of Systems 2 Narrative: Constitutional symptoms: Negative except as documented in HPI. Skin symptoms: Negative except as documented in HPI. Eye symptoms: Negative except as documented in HPI. ENMT symptoms: Negative except as documented in HPI. Respiratory symptoms: Negative except as documented in HPI. Cardiovascular symptoms: Negative except as documented in HPI. Gastrointestinal symptoms: Negative except as documented in HPI. Genitourinary symptoms: Negative except as documented in HPI. Musculoskeletal symptoms: Negative except as documented in HPI. Neurologic symptoms: Negative except as documented in HPI. Psychiatric symptoms: Negative except as documented in HPI. Endocrine symptoms: Negative except as documented in HPI. 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 Father Cirrhosis of liver, Onset Age: 50 . Social History Smoking and tobacco/nicotine status: former use of tobacco/nicotine Quit status (tobacco/nicotine): has quit using Year quit tobacco: 1990s Alcohol intake: never Substance/Drug Use: never Adopted: No Caregiver/support person: No Lives independently: No Household members: spouse Housing: House Marital status: Number of children: 2 Number of grandchildren: 2 Highest education level completed: High School Graduate Current occupational status: retired Current occupational exposures/hazards: No Previous occupational history: [employer] Do you think of yourself as: Straight/Heterosexual Current gender identity: Female Female Reproductive History: Spontaneous abortions: No Physical Exam 2 Narrative: EXAM NARRATIVE: General: Alert, no acute distress. Skin: Warm, dry. Head: Normocephalic, atraumatic. Neck: Supple, trachea midline. Eye: Extraocular movements are intact. Ears, nose, mouth and throat: mucosa moist. Cardiovascular: Regular, Normal peripheral perfusion. Respiratory: Lungs are clear to auscultation, respirations are non-labored, breath sounds are equal, Symmetrical chest wall expansion. Gastrointestinal: Soft, Nontender, Non distended Musculoskeletal: Normal ROM, no deformity. Neurological: Alert and oriented, No focal neurological deficit observed. Psychiatric: Cooperative, appropriate mood & affect. Course 2 Vital Signs: Vital signs: Vital Signs Temperature 98.4 F 07/08/24 09:02 Pulse Rate 83 07/08/24 11:17 Respiratory Rate 19 H 07/08/24 11:17 Blood Pressure 143/84 07/08/24 11:17 Pulse Oximetry 96 07/08/24 11:17 Oxygen Delivery Me thod Room Air 07/08/24 09:02 MDM - SOB/Dyspnea Medical Decision Making Differential diagnosis for patient with shortness of breath includes but is not limited to and based on the above HPI, review of systems and physical exam: Pneumonia. Bronchitis. Asthma or COPD with acute exacerbation. Acute coronary syndrome / NV. Pulmonary embolism. Anxiety. Congestive heart failure. Viral infections including influenza and Covid-19. Atrial fibrillation. Anxiety. Pleural effusion. Pneumothorax. Orders placed to evaluate differential diagnosis based on the above differential, HPI and physical exam EKG: Time 9:02 AM. Rate 94. Normal sinus rhythm, No ST-T changes, no ectopy, normal LA & QRS intervals, This was reviewed and interpreted by the ER physician at 9:10 AM Chest x-ray: No acute process. No infiltrate. No pneumothorax. This was reviewed and interpreted by myself the emergency room physician. I also reviewed the radiology report. Lab Review: Laboratory results were reviewed and interpreted by myself the emergency room physician. No leukocytosis. No anemia. No renal failure. I reviewed the patient's medical record. Assessment and plan: Bronchitis - Discharged home - Discussed plan with patient. Answered any questions. - Evaluation and treatment of this problem were appropriate in the emergency setting. Lab Data 07/08/24 09:40 07/08/24 09:40 Labs/Radiology: Radiology Impressions Chest X-Ray 07/08/24 08:48 Impression: Atherosclerosis. Laboratory Results WBC 7.53 10^3/uL (3.29-11.43) 07/08/24 09:40 RBC 4.72 10^6/uL (3.85-5.65) 07/08/24 09:40 Hgb 13.90 g/dL (11.27-16.99) 07/08/24 09:40 Hct 42.1 % (36-47) 07/08/24 09:40 MCV 89.2 fl (85-98) 07/08/24 09:40 MCH 29.4 pg (27-33) 07/08/24 09:40 MCHC 33.0 g/dL (30-55) 07/08/24 09:40 RDW 12.6 % (12.1-15.1) 07/08/24 09:40 Plt Count 228 10^3/cmm (157-399) 07/08/24 09:40 MPV 10.4 fL (7.4-10.4) 07/08/24 09:40 Neut % (Auto) 62.9 % 07/08/24 09:40 Lymph % (Auto) 25.1 % 07/08/24 09:40 [place] % (Auto) 10.2 % 07/08/24 09:40 Eos % (Auto) 1.1 % 07/08/24 09:40 Baso % (Auto) 0.4 % 07/08/24 09:40 Neut # (Auto) 4.74 10^3/uL (1.8-7.7) 07/08/24 09:40 Lymph # (Auto) 1.9 10^3/uL (0.8-4.8) 07/08/24 09:40 [place] # (Auto) 0.8 10^3/uL (0.2-0.9) 07/08/24 09:40 Eos # (Auto) 0.1 10^3/uL (0.0-0.8) 07/08/24 09:40 Baso # (Auto) 0.0 10^3/uL (0.0-0.1) 07/08/24 09:40 Nucleated RBC % (auto) 0 % 07/08/24 09:40 Nucleated RBCs # 0.0 /100WBC 07/08/24 09:40 Sodium 139 mmol/L (136-145) 07/08/24 09:40 Potassium 3.9 mmol/L (3.5-5.1) 07/08/24 09:40 Chloride 103 mmol/L (98-107) 07/08/24 09:40 Carbon Dioxide 25 mmol/L (22-29) 07/08/24 09:40 Anion Gap 14.9 (5-19) 07/08/24 09:40 BUN 15 mg/dL (8-23) 07/08/24 09:40 Creatinine 0.7 mg/dL (0.5-0.9) 07/08/24 09:40 GFR Calculation Not Reportable 07/08/24 09:40 Glucose 114 mg/dL (65-115) 07/08/24 09:40 Calculated Osmolality 290 mOsm/kg (285-295) 07/08/24 09:40 Calcium 9.2 mg/dL (8.5-10.5) 07/08/24 09:40 Total Bilirubin 0.5 mg/dL (0.15-1.2) 07/08/24 09:40 AST 27 U/L (0-32) 07/08/24 09:40 ALT 20 U/L (0-33) 07/08/24 09:40 Alkaline Phosphatase 87 U/L (35-105) 07/08/24 09:40 Total Protein 7.1 g/dL (6.6-8.7) 07/08/24 09:40 Albumin 4.4 g/dL (3.5-5.2) 07/08/24 09:40 Globulin 2.7 g/dL (1.3-4.6) 07/08/24 09:40 All radiology interpretation(s) finalized by discharge Discharge Plan Discharge Patient Disposition: Home Clinical Impression: Upper respiratory infection Condition: Stable Prescriptions: New prednisone 20 mg tablet 60 mg PO DAILY 5 Days Qty: 15 0RF doxycycline monohydrate 100 mg capsule 100 mg PO BID 10 Days Qty: 20 0RF No Action atorvastatin 10 mg tablet See Rx Instructions .ROUTE .COMPLEX Qty: 90 3RF Dose Instruction: TAKE 1 TABLET EVERY DAY FOR HYPERLIPIDEMIA Rx Instructions: TAKE 1 TABLET EVERY DAY FOR HYPERLIPIDEMIA albuterol sulfate 90 mcg/actuation HFA aerosol inhaler 1 inh inhalation QID PRN (Reason: shortness of breath or wheezing) Qty: 8.5 2RF cholecalciferol (vitamin D3) 25 mcg (1,000 unit) capsule 25 mcg PO DAILY Qty: 90 1RF fluoxetine 40 mg capsule See Rx Instructions .ROUTE .COMPLEX Qty: 90 3RF Dose Instruction: TAKE 1 CAPSULE EVERY DAY FOR DEPRESSION Rx Instructions: TAKE 1 CAPSULE EVERY DAY FOR DEPRESSION omeprazole 20 mg capsule,delayed release(DR/EC) 20 mg PO DAILY Qty: 90 3RF Rx Instructions: TAKE 1 CAPSULE EVERY DAY FOR GERD glimepiride 4 mg tablet 4 mg PO DAILY Qty: 90 3RF Rx Instructions: take with first meal of the day (DME) True Metrix Glucose Test Strip Strip See Rx Instructions .ROUTE .COMPLEX Qty: 100 11RF Dose Instruction: TEST BLOOD SUGAR ONE TIME DAILY FOR DIABETES Rx Instructions: TEST BLOOD SUGAR ONE TIME DAILY FOR DIABETES (DME) lancets [TRUEplus Lancets] 33 gauge misc See Rx Instructions .ROUTE .COMPLEX Qty: 100 11RF Dose Instruction: TEST BLOOD SUGAR ONE TIME DAILY FOR DIABETES Rx Instructions: TEST BLOOD SUGAR ONE TIME DAILY FOR DIABETES amlodipine 5 mg tablet 5 mg PO DAILY Qty: 90 3RF multivitamin [Multiple Vitamins] Tablet 1 tab PO DAILY fluticasone propionate [Flonase Allergy Relief] 50 mcg/actuation [place],Suspension 2 spray INTRANASAL DAILY PRN (Reason: Congestion) Discharge Orders: Discharge ED (Routine); Ordered 07/08/24 Ordered By: Trisha Martinez Referrals: Ambreen Rodriguez MD [Primary Care Provider, Family Practice] Discharge Diet: Usual diet Discharge Activity: Increase activity as tolerated Patient Instructions: Acute Bronchitis (ED), Opioid Safety, Pain Management Activity Restrictions/Additional Instructions: Thank you for choosing [facility] for your healthcare needs today. You have been screened and evaluated and felt safe for discharge. Health conditions do change or evolve sometimes and as such it is important that you follow up with your Primary Doctor to be re checked, 3-5 days is a general good time frame for follow up. You are always welcome to return to the ED for re assessment if your symptoms are worsening or you have new concerns Print Language: Amharic Coding Level of Care Code ED Mandarin Chinese Teacher for Koby Tavarez
[2024-07-08 11:17] VITALS: BP 143/84; PULSE 83; RESP 19; O2SAT 96
== END 2024-07-08 11:18 | disposition home or self-care (01) ==
PROVIDERS: Family Medicine; Emergency Provider Emergency Medicine; PCP Family Medicine
DX: J06.9 Acute upper respiratory infection, unspecified (principal); I10 Essential (primary) hypertension; E78.5 Hyperlipidemia, unspecified; E11.9 Type 2 diabetes mellitus without complications; J44.9 Chronic obstructive pulmonary disease, unspecified; G47.33 Obstructive sleep apnea (adult) (pediatric); Z87.891 Personal history of nicotine dependence
CPT/HCPCS: 36415; 71045; 80053; 85025; 93005; 99285

== ENCOUNTER → 2024-12-10 10:24 | Outpatient (BNVA) | payer MEDICARE, SELFPAY | PROVIDERS: PCP Family Medicine; Visit Provider Family Medicine | DX: E11.9 Type 2 diabetes mellitus without complications (principal) | CPT/HCPCS: 80053; 82043; 83036 ==

== ENCOUNTER → 2025-01-25 07:32 | Outpatient (BNVA) | payer MEDICARE, SELFPAY | PROVIDERS: PCP Family Medicine; Visit Provider Registered Nurse Neonatal Intensive Care | DX: J02.9 Acute pharyngitis, unspecified (principal) | CPT/HCPCS: 87071; 87880 ==